=== PATIENT | male | born 1945 | race Caucasian/White ===

== ENCOUNTER 2021-02-04 02:13 | Inpatient (IN) | payer MEDICARE ==
--- NOTE | 2021-02-04 02:26 | ED ---
Chest Pain HPI - General Chief Complaint: Chest Pain Stated Complaint: Chest pain, back pain Time Seen by Provider: 02/04/21 02:18 Source: patient, family, RN notes reviewed, old records reviewed Mode of arrival: wheelchair Limitations: no limitations - History of Present Illness MD Complaint: chest pain -: hour(s) Onset: during rest Pain Location: substernal Pain Radiation: back Severity: moderate Severity scale (1-10): 4 Quality: tightness, heaviness Consistency: constant Improves With: nothing Worsens With: nothing Anginal Symptoms: diaphoresis Other Symptoms: palpitations Treatments Prior to Arrival: none - Related Data Home Medications Medication Instructions Recorded Confirmed Albuterol Inhaler [Ventolin Hfa 2 puff INHALATION RT-QID PRN 02/04/21 02/04/21 Inhaler] Ammonium Lactate Lotion 1 applic TOPICAL DAILY PRN 02/04/21 02/04/21 [Lac-Hydrin 12% Lotion] Aspirin EC [Ecotrin] 325 mg PO DAILY 02/04/21 02/04/21 Atorvastatin [Lipitor] 40 mg PO HS 02/04/21 02/04/21 Cetirizine HCl [Zyrtec] 10 mg PO DAILY PRN 02/04/21 02/04/21 Doxazosin [Cardura] 4 mg PO BID 02/04/21 02/04/21 Econazole 1% Cream [Spectazole] 1 applic TOPICAL DAILY PRN 02/04/21 02/04/21 Finasteride [Proscar] 5 mg PO DAILY 02/04/21 02/04/21 INSULIN LISPRO (For Pump) [humaLOG 0.01 units SQ-PUMP CONTINUOUS 02/04/21 02/04/21 (For Pump)] Isosorbide Mononitrate ER [Imdur] 30 mg PO DAILY 02/04/21 02/04/21 Levothyroxine Sodium [Synthroid] 124 mcg PO DAILY 02/04/21 02/04/21 Losartan Potassium 100 mg PO HS 02/04/21 02/04/21 Metoprolol Tartrate [Lopressor] 50 mg PO BID 02/04/21 02/04/21 Pentoxifylline 400 mg PO BID 02/04/21 02/04/21 Verapamil HCl [Verapamil ER] 120 mg PO HS 02/04/21 02/04/21 Verapamil HCl [Verapamil ER] 240 mg PO DAILY 02/04/21 02/04/21 Zolpidem [Ambien] 5 mg PO HS PRN 02/04/21 02/04/21 Allergies Allergy/AdvReac Type Severity Reaction Status Date / Time amlodipine [From Lotrel] AdvReac Cough Verified 02/04/21 07:55 benazepril [From Lotrel] AdvReac Cough Verified 02/04/21 07:55 Review of Systems ROS Statement: Those systems with pertinent positive or pertinent negative responses have been documented in the HPI. ROS Other: All systems not noted in ROS Statement are negative. EKG Findings - EKG Comments: EKG Findings:: EKG shows sinus rhythm 64 PA 164 QRS 84 QTc 433 Past Medical History Past Medical History: Diabetes Mellitus, Hypertension History of Any Multi-Drug Resistant Organisms: None Reported Additional Past Surgical History / Comment(s): carpal tunnel surgery Past Psychological History: No Psychological Hx Reported Smoking Status: Never smoker Past Alcohol Use History: None Reported Past Drug Use History: None Reported - Past Family History Father Family Medical History: Myocardial Infarction ([place]) General Exam Limitations: no limitations General appearance: alert, in no apparent distress Head exam: Present: atraumatic, normocephalic, normal inspection Eye exam: Present: normal appearance, PERRL, EOMI. Absent: scleral icterus, conjunctival injection, periorbital swelling ENT exam: Present: normal exam, mucous membranes moist Neck exam: Present: normal inspection. Absent: tenderness, meningismus, lymphadenopathy Respiratory exam: Present: normal lung sounds bilaterally. Absent: respiratory distress, wheezes, rales, rhonchi, stridor Cardiovascular Exam: Present: regular rate, normal rhythm, normal heart sounds. Absent: systolic murmur, diastolic murmur, rubs, gallop, clicks GI/Abdominal exam: Present: soft, normal bowel sounds. Absent: distended, tende rness, guarding, rebound, rigid Extremities exam: Present: normal inspection, full ROM, normal capillary refill. Absent: tenderness, pedal edema, joint swelling, calf tenderness Back exam: Present: normal inspection Neurological exam: Present: alert, oriented X3, CN II-XII intact Psychiatric exam: Present: normal affect, normal mood Skin exam: Present: warm, dry, intact, normal color. Absent: rash Course Vital Signs 02/04/21 02/04/21 02:20 03:30 Temperature 98.1 F Pulse Rate 64 57 L Respiratory 18 18 Rate Blood Pressure 156/79 139/72 O2 Sat by Pulse 97 96 Oximetry - Reevaluation(s) Reevaluation #1: 02/04/21 Medical record is reviewed Patient continues to have chest pain here in the ER Patient is in no acute distress Patient informed results questions answered Disposition Clinical Impression: Chest pain Disposition: ADMITTED IP TO THIS HOSP Condition: Undetermined Is patient prescribed a controlled substance at d/c from ED?: No
[2021-02-04 03:07] LABS: Basophils # (A) 0.1 k/uL (0-0.2); Basophils % (A) 1 %; Eosinophils # (A) 0.4 k/uL (0-0.7); Eosinophils % (A) 6 %; HCT 34.9 % (39.0-53.0); HGB 11.9 gm/dL (13.0-17.5); Lymphocytes # (A) 0.7 k/uL (1.0-4.8); Lymphocytes % (A) 12 %; MCH 31.9 pg (25.0-35.0); MCHC 34.1 g/dL (31.0-37.0); MCV 93.3 fL (80.0-100.0); Mean Platelet Volume 7.9; Monocytes # (A) 0.5 k/uL (0-1.0); Monocytes % (A) 8 %; Neutrophils # (A) 4.5 k/uL (1.3-7.7); Neutrophils % (A) 71 %; Platelet Count 176 k/uL (150-450); RBC 3.74 m/uL (4.30-5.90); RDW 12.8 % (11.5-15.5); WBC 6.3 k/uL (3.8-10.6)
[2021-02-04 03:13] LABS: ALT 28 U/L (4-49); AST 30 U/L (17-59); African American GFR (CKD) 35 (>60 ml/min/1.73 sqM); Albumin 3.6 g/dL (3.5-5.0); Alkaline Phosphatase 93 U/L (38-126); Anion Gap 8 mmol/L; Blood Urea Nitrogen 48 mg/dL (9-20); Calcium 8.8 mg/dL (8.4-10.2); Carbon Dioxide 22 mmol/L (22-30); Chloride 104 mmol/L (98-107); Glucose 289 mg/dL (74-99); Lipase 116 U/L (23-300); Magnesium 1.9 mg/dL (1.6-2.3); Non-African American GFR(CKD) 30 (>60 ml/min/1.73 sqM); Potassium 4.8 mmol/L (3.5-5.1); Sodium 134 mmol/L (137-145); Total Bilirubin <0.1 mg/dL (0.2-1.3)
[2021-02-04 03:19] LABS: Partial Thromboplastin Time 23.6 sec (22.0-30.0); Prothrombin Time 10.5 sec (9.0-12.0)
[2021-02-04] MEDS ORDERED: ASPIRIN 81 MG PO STA (04:15)
[2021-02-04] MEDS ORDERED: MORPHINE SULFATE 4 MG/ML SYRINGE IV PRN (04:15)
[2021-02-04] MEDS ORDERED: NITROGLYCERIN SL TABS 0.4 MG TAB SUBLINGUAL PRN ×2 (04:15→14:21)
--- NOTE | 2021-02-04 04:29 | XR ---
EXAMINATION TYPE: XR chest 2V DATE OF EXAM: 02/04/2021 COMPARISON: 07/31/2011 HISTORY: Chest pain TECHNIQUE: 2 views FINDINGS: Heart and mediastinum are normal. Lungs are clear of infiltrate. There is mild atheromatous change in the thoracic aorta. There is no heart failure. There are no hilar masses. There are chest leads. Bony thorax appears intact. IMPRESSION: No active cardiopulmonary disease. There is improved inspiration compared to old exam.
[2021-02-04] MEDS: SODIUM CHLORIDE 0.9% 1,000 ML IV SCH (04:48)
--- NOTE | 2021-02-04 04:52 | P.HPIM ---
History of Present Illness H&P Date: 02/04/21 Patient is a 76-year-old male with a PMH of coronary artery disease, hypertension, and type II DM who presented to the emergency room with complaints of chest pain. The patient reports that he was in his usual state of health until about 4 PM last night when he developed what he initially thought was heartburn. He took some Pepto-Bismol which alleviated his symptoms but subsequently recurred at around 11 PM. He reports that his discomfort is substernal, sore in nature, 5 out of 10 on maximal intensity, and lasted an hour, resolving spontaneously. He denied any alleviating or exacerbating f eatures. Noted that the pain was nonradiating, and denied associated shortness breath, nausea, vomiting, diaphoresis, dizziness. Denied leg swelling or pain. Denied recent travel or prolonged immobilization. Reports that the pain is different from his prior MD. Further denied cough, fever, chills, abdominal pain, diarrhea. In the emergency room and EKG revealed sinus rhythm at 64 bpm with no acute ST/T-wave changes noted as reviewed by me. Chest x-ray was unremarkable. Laboratory evaluation was remarkable for hemoglobin of 11.9, sodium 134, BUN 48, creatinine 2.08, glucose 289, troponin less than 0.012, and proBNP 195. Review of systems: Pertinent positives and negatives as discussed in HPI, a complete review of systems was performed and all other systems are negative. Physical examination: General: non toxic, no distress, appears at stated age, obese Derm: no unusual rashes/lesions no unusual ecchymoses, warm, dry Head: atraumatic, normocephalic, symmetric Eyes: EOMI, no lid lag, anicteric sclera, pupils equal round reactive to light ENT: Nose and ears atraumatic, no thrush, no pharyngeal erythema Neck: No thyromegaly, no cervical lymphadenopathy, trachea midline, supple Mouth: no lip lesion, mucus membranes moist Cardiovascular: S1S2 reg, no murmur, positive posterior tibial pulse bilateral, no edema, capillary refill less than 2 seconds Lungs: CTA bilateral, no rhonchi, no rales , no accessory muscle use Abdominal: soft, nontender to palpation, no guarding, no appreciable organomegaly, normal bowel sounds Ext: no gross muscle atrophy, muscle strength 5 out of 5 in all 4 extremities grossly, no contractures, Neuro: CN II-XI grossly intact, light touch intact all 4 extremities, finger to nose within normal limits, Psych: Alert, oriented, appropriate affect Assessment/plan Atypical Chest pain, rule out ACS -Cardiac monitoring -Cardiology consult -Trend troponin -Continue aspirin Kidney disease, acute versus chronic -Monitor for now -No baseline available for comparison Type II DM -Lispro insulin sliding scale blood glucose monitoring -Check A1c DVT prophylaxis -Heparin subq The patient is admitted with an anticipated less than 2 midnight stay for evaluation of chest pain. CODE STATUS: Full Code Discussed with: Patient Anticipated discharge date: in am Anticipated discharge place: Home Past Medical History Past Medical History: Diabetes Mellitus, Hypertension History of Any Multi-Drug Resistant Organisms: None Reported Additional Past Surgical History / Comment(s): carpal tunnel surgery Past Psychological History: No Psychological Hx Reported Smoking Status: Never smoker Past Alcohol Use History: None Reported Past Drug Use History: None Reported - Past Family History Father Family Medical History: Myocardial Infarction ([place]) Medications and Allergies Allergies Allergy/AdvReac Type Severity Reaction Status Date / Time amlodipine [From Lotrel] AdvReac Cough Verified 02/04/21 02:26 benazepril [From Lotrel] AdvReac Cough Verified 02/04/21 02:26 Physical Exam Vitals: Vital Signs Temp Pulse Resp BP Pulse Ox 02/04/21 03:30 57 L 18 139/72 96 02/04/21 02:20 98.1 F 64 18 156/79 97 Intake and Output 02/03/21 02/03/21 02/04/21 14:59 22:59 06:59 Other: Weight 100.698 kg Results CBC & Chem 7: 02/04/21 02:49 02/04/21 02:49 Labs: Abnormal Lab Results - Last 24 Hours (Table) 02/04/21 02/04/21 Range/Units 02:49 02:49 RBC 3.74 L (4.30-5.90) m/uL Hgb 11.9 L (13.0-17.5) gm/dL Hct 34.9 L (39.0-53.0) % Lymphocytes # 0.7 L (1.0-4.8) k/uL Sodium 134 L (137-145) mmol/L BUN 48 H (9-20) mg/dL Creatinine 2.08 H (0.66-1.25) mg/dL Glucose 289 H (74-99) mg/dL Total Bilirubin <0.1 L (0.2-1.3) mg/dL Total Protein 6.0 L (6.3-8.2) g/dL
[2021-02-04 07:36] LABS: Glucose,Whole Blood 187 mg/dL (75-99)
[2021-02-04] MEDS ORDERED: ZOLPIDEM 5 MG TAB PO PRN (08:27)
[2021-02-04] MEDS ORDERED: ALBUTEROL NEBULIZED 2.5 MG/3 ML INHALATION PRN (08:27)
[2021-02-04] MEDS ORDERED: LORATADINE 10 MG TAB PO PRN (08:27)
[2021-02-04] MEDS ORDERED: CAFFEINE CITRATE 60 MG/3 ML VIAL IV PRN (08:29)
[2021-02-04] MEDS ORDERED: REGADENOSON 0.4 MG/5 ML SYRINGE IV PRN (08:29)
[2021-02-04] MEDS ORDERED: AMINOPHYLLINE 500 MG/20 ML VIAL IV PRN (08:29)
[2021-02-04] MEDS ORDERED: INSULIN LISPRO (For Pump) 100 UNIT/ML VIAL SQ-PUMP SCH (08:30)
[2021-02-04] MEDS: INSULIN ASPART (NovoLOG) 100 UNIT/ML VIAL SQ SCH ×2 (08:30→12:00)
[2021-02-04] MEDS: ISOSORBIDE MONONITRATE ER 30 MG TAB.ER.24H PO SCH (08:47)
[2021-02-04] MEDS: METOPROLOL TARTRATE 50 MG TAB PO SCH ×2 (08:47→20:49)
[2021-02-04] MEDS: ASPIRIN 81 MG PO SCH (08:47)
[2021-02-04] MEDS: HEPARIN SODIUM,PORCINE/PF 5,000 UNIT/0.5 ML SYRINGE SQ SCH ×2 (08:47→16:12)
[2021-02-04] MEDS: LEVOTHYROXINE 112 MCG TAB PO SCH (08:47)
[2021-02-04] MEDS: VERAPAMIL SR 120 MG TABLET.ER PO SCH ×2 (08:48→20:49)
[2021-02-04] MEDS: DOXAZOSIN 4 MG TAB PO SCH ×2 (08:48→20:49)
[2021-02-04] MEDS: FINASTERIDE 5 MG TAB PO SCH (08:48)
[2021-02-04] MEDS: PENTOXIFYLLINE 400 MG TABLET.ER PO SCH ×2 (08:48→20:51)
--- NOTE | 2021-02-04 09:48 | P.CRDCN ---
History of Present Illness Consult date: 02/04/21 History of present illness: HISTORY OF PRESENT ILLNESS: This is a 76-year-old male with a past medical history significant for hypertension, hyperlipidemia, diabetes mellitus. Patient states he had a heart attack about 10 years ago. He reports having a cardiac cath at that time and did not require stenting. Patient follows in the office with Dr. Bryan. We have been asked to see the patient in consultation for chest pain. Patient examined at the bedside. Patient states yesterday he ate a meal around 3 PM. He states at 4 PM he started having heartburn symptoms. He denies any radiation of the pain. He denied any nausea or vomiting. Denied dizziness or lightheadedness. Denied shortness of breath. He states he took some Pepto wh ich relieved his symptoms. He states later that night he was lying in bed when he started to get some pain in his back and his right shoulder. He states he rolled over to his other side and then started having some pain in his left shoulder. He states that he had pulled a muscle a few days ago and his neck so he did not think much of this. However he got up and states he started working on his laptop when he then developed some chest pain going across to his chest. He states he took his blood pressure and it was in the 160s. He states he took his blood pressure again and then it went up to the 190s so he became concerned and came to the hospital. Patient currently denies chest pain or pressure. Patient did have a stress test performed in January 2020 which was mildly abnormal. However patient states he followed up with Dr. Bryan and no heart cath was recommended at that time. EKG reveals sinus mechanism with no signs of acute ischemia Chest xray no active cardiopulmonary disease Laboratory data: WBC 6.3. Hemoglobin 11.9. Platelet count 176. Sodium 134. Potassium 4.8. BUN 48. Creatinine 2.08. Troponin negative 3. ProBNP 195. Current home cardiac medications include verapamil 120 mg daily, aspirin 325 mg daily, metoprolol tartrate 50 mg daily, losartan 100mg daily, imdur 30mg daily, cardura 4mg BID, lipitor 40mg daily Most recent echocardiogram obtained in December 2019 revealed ejection fraction 55%. Mild mitral regurgitation. Mild tricuspid regurgitation. Patient underwent nuclear stress test in January 2020 revealing positive stress test based on EKG changes. Abnormal perfusion study with reversible ischemia involving the small segment in the anterior apical area. In addition there appeared to be a fixed defect involving the inferior basal segment. This could be secondary to soft tissue attenuation, though previous myocardial infection cannot be excluded. Gated images showed fair systolic fraction was suggestion of mild hypokinesia of the inferior apical area REVIEW OF SYSTEMS: At the time of my exam: CONSTITUTIONAL: Denies fever or chills. HEENT: Denies blurred vision, vision changes, or eye pain. Denies hemoptysis CARDIOVASCULAR: Denies chest pain. Denies orthopnea. Denies PND. Denies palpitations RESPIRATORY: Denies shortness of breath. GASTROINTESTINAL: Denies abdominal pain. Denies nausea or vomiting. HEMATOLOGIC: Denies bleeding disorders. GENITOURINARY: Denies any blood in urine. SKIN: Denies pruitis. Denies rash. PHYSICAL EXAM: VITAL SIGNS: Reviewed. GENERAL: Well-developed in no acute distress. HEENT: Head is normocephalic. Pupils are equal, round. Sclerae anicteric. Mucous membranes of the mouth are moist. Neck supple. No JVD or thyromegaly LUNGS: Respirations even and unlabored. Lungs essentially clear to auscultation bilaterally. HEART: Regular rate and rhythm. S1 and S2 heard. ABDOMEN: Soft. Nondistended. Nontender. EXTREMITIES: Normal range of motion. No clubbing or cyanosis. Peripheral pulses intact. No lower extremity edema NEUROLOGIC: Awake and alert. Oriented x 3. ASSESSMENT: Chest pain Hypertension Hyperlipidemia Diabetes History of NSTEMI, 2010, not requiring PCI Obesity, BMI 31.0 PLAN: An acute coronary event has been ruled out Resume home cardiac medications Obtain 2D echo to assess cardiac structure and function Patient to undergo Le scan stress test today Further recommendations pending patient course Nurse practitioner note has been reviewed by physician. Signing provider agrees with the documented findings, assessment, and plan of care. Past Medical History Past Medical History: Diabetes Mellitus, Hypertension History of Any Multi-Drug Resistant Organisms: None Reported Past Surgical History: Tonsillectomy Additional Past Surgical History / Comment(s): carpal tunnel surgery Past Anesthesia/Blood Transfusion Reactions: No Reported Reaction Past Psychological History: No Psychological Hx Reported Smoking Status: Never smoker Past Alcohol Use History: None Reported Past Drug Use History: None Reported - Past Family History Father Family Medical History: Myocardial Infarction ([place]) Medications and Allergies Home Medications Medication Instructions Recorded Confirmed Type Albuterol Inhaler [Ventolin Hfa 2 puff INHALATION RT-QID PRN 02/04/21 02/04/21 History Inhaler] Ammonium Lactate Lotion 1 applic TOPICAL DAILY PRN 02/04/21 02/04/21 History [Lac-Hydrin 12% Lotion] Aspirin EC [Ecotrin] 325 mg PO DAILY 02/04/21 02/04/21 History Atorvastatin [Lipitor] 40 mg PO HS 02/04/21 02/04/21 History Cetirizine HCl [Zyrtec] 10 mg PO DAILY PRN 02/04/21 02/04/21 History Doxazosin [Cardura] 4 mg PO BID 02/04/21 02/04/21 History Econazole 1% Cream [Spectazole] 1 applic TOPICAL DAILY PRN 02/04/21 02/04/21 History Finasteride [Proscar] 5 mg PO DAILY 02/04/21 02/04/21 History INSULIN LISPRO (For Pump) [humaLOG 0.01 units SQ-PUMP CONTINUOUS 02/04/21 02/04/21 History (For Pump)] Isosorbide Mononitrate ER [Imdur] 30 mg PO DAILY 02/04/21 02/04/21 History Levothyroxine Sodium [Synthroid] 124 mcg PO DAILY 02/04/21 02/04/21 History Losartan Potassium 100 mg PO HS 02/04/21 02/04/21 History Metoprolol Tartrate [Lopressor] 50 mg PO BID 02/04/21 02/04/21 History Pentoxifylline 400 mg PO BID 02/04/21 02/04/21 History Verapamil HCl [Verapamil ER] 120 mg PO HS 02/04/21 02/04/21 History Verapamil HCl [Verapamil ER] 240 mg PO DAILY 02/04/21 02/04/21 History Zolpidem [Ambien] 5 mg PO HS PRN 02/04/21 02/04/21 History Allergies Allergy/AdvReac Type Severity Reaction Status Date / Time amlodipine [From Lotrel] AdvReac Cough Verified 02/04/21 07:55 benazepril [From Lotrel] AdvReac Cough Verified 02/04/21 07:55 Physical Exam Vitals: Vital Signs Temp Pulse Pulse Resp BP BP Pulse Ox 02/04/21 07:00 97.6 F 71 16 185/84 97 02/04/21 05:23 97.8 F 59 L 16 172/80 95 02/04/21 04:50 97.8 F 60 18 161/88 96 02/04/21 03:30 57 L 18 139/72 96 02/04/21 02:20 98.1 F 64 18 156/79 97 Intake and Output 02/03/21 02/04/21 02/04/21 22:59 06:59 14:59 Other: # Voids 1 Weight 100.698 kg Results 02/04/21 02:49 02/04/21 02:49 Cardiac Enzymes 02/04/21 02/04/21 02/04/21 Range/Units 02:49 02:49 05:41 AST 30 (17-59) U/L Troponin I <0.012 <0.012 (0.000-0.034) ng/mL Coagulation 02/04/21 Range/Units 02:49 PT 10.5 (9.0-12.0) sec APTT 23.6 (22.0-30.0) sec CBC 02/04/21 Range/Units 02:49 WBC 6.3 (3.8-10.6) k/uL RBC 3.74 L (4.30-5.90) m/uL Hgb 11.9 L (13.0-17.5) gm/dL Hct 34.9 L (39.0-53.0) % Plt Count 176 (150-450) k/uL Comprehensive Metabolic Panel 02/04/21 Range/Units 02:49 Sodium 134 L (137-145) mmol/L Potassium 4.8 (3.5-5.1) mmol/L Chloride 104 (98-107) mmol/L Carbon Dioxide 22 (22-30) mmol/L BUN 48 H (9-20) mg/dL Creatinine 2.08 H (0.66-1.25) mg/dL Glucose 289 H (74-99) mg/dL Calcium 8.8 (8.4-10.2) mg/dL AST 30 (17-59) U/L ALT 28 (4-49) U/L Alkaline Phosphatase 93 (38-126) U/L Total Protein 6.0 L (6.3-8.2) g/dL Albumin 3.6 (3.5-5.0) g/dL Current Medications Generic Name Dose Route Start Last Admin Trade Name Freq PRN Reason Stop Dose Admin Aspirin 325 mg 02/05/21 09:00 Aspirin 325 Mg Tab PO DAILY [facility] Heparin Sodium (Porcine) 5,000 unit 02/04/21 08:00 Heparin Sodium,Porcine/Pf 5,000 Unit/0.5 Ml Syringe SQ Q8HR [facility] Sodium Chloride 1,000 mls @ 20 mls/hr 02/04/21 04:15 02/04/21 04:48 Saline 0.9% IV 20 mls/hr .Q24H [facility] Administration Insulin Aspart 0 unit 02/04/21 07:30 Insulin Aspart (Novolog) 100 Unit/Ml Vial SQ ACHS [facility] Protocol Morphine Sulfate 4 mg 02/04/21 04:15 Morphine Sulfate 4 Mg/Ml Syringe IV Q4HR PRN Chest Pain Nitroglycerin 0.4 mg 02/04/21 04:15 Nitroglycerin Sl Tabs 0.4 Mg Tab SUBLINGUAL Q5M PRN Chest Pain Intake and Output 02/03/21 02/04/21 02/04/21 22:59 06:59 14:59 Other: # Voids 1 Weight 100.698 kg 02/04/21 02:49 02/04/21 02:49
[2021-02-04 09:52] LABS: African American GFR (CKD) 36.5 (60.0-200.0); Anion Gap 7.6 mmol/L (4.00-12.00); BUN/Creat Ratio 23.5 Ratio (12.00-20.00); Calcium 8.8 mg/dL (8.7-10.3); Carbon Dioxide 25.4 mmol/L (21.6-31.8); Non-African American GFR(CKD) 31.5 (60.0-200.0); Potassium 4.8 mmol/L (3.5-5.5)
[2021-02-04 11:58] LABS: Glucose,Whole Blood 200 mg/dL (75-99)
--- NOTE | 2021-02-04 13:27 | NM ---
EXAMINATION TYPE: NM stress lexiscan cardiolite DATE OF EXAM: 02/04/2021 COMPARISON: NONE HISTORY: Chest pain TECHNIQUE: After the intravenous administration of 10.2 mCi Tc 99m Sestamibi - Cardiolite resting SP ECT images acquired 75 minutes post injection. At peak stress 25 mCi Tc 99m Sestamibi - Stress images obtained 35 minutes post injection The patient was stressed with 0.4mg Lexiscan. FINDINGS: There is diminished radiotracer accumulation along the inferior wall extending from the cardiac base to the cardiac apex on the stress images. This has improved radiotracer distribution on the resting i mages. Stress-induced ischemic change should be considered. Polar maps appear to underestimate the de fect. Ejection fraction of 51% is normal. Normal greater than 50%. There is dyskinesia of the cardiac apex along the inferior wall. IMPRESSION: 1. Stress-induced ischemic change along the inferior wall. Correlate with EKG changes. 2. Mild dyskinesia distal inferior wall. 3. Normal ejection fraction of 51%
[2021-02-04] MEDS ORDERED: INSULIN PUMP BASAL RATES 1 EACH MISC MISCELLANE PRN (13:37)
[2021-02-04] MEDS ORDERED: INSPUCOR MISCELLANE PRN (13:37)
[2021-02-04] MEDS ORDERED: INSULIN ASPART (NovoLOG) 100 UNIT/ML VIAL SQ PRN (13:37)
[2021-02-04] MEDS ORDERED: ALPRAZolam 0.25 MG TAB PO PRN (14:21)
[2021-02-04] MEDS ORDERED: ALPRAZolam 0.5 MG TAB PO PRN (14:21)
--- NOTE | 2021-02-04 15:02 | EST ---
EXERCISE STRESS DATE OF SERVICE: 02/04/21 AGE: 76 SEX: M HT: 5'11" WT: 222 lbs. PROTOCOL: Lexiscan STAGE: NA DURATION OF EXERCISE: NA HEART RATE REST: 58 BLOOD PRESSURE REST: 139/70 MAXIMUM HEART RATE ACHIEVED: 79 MAXIMUM BLOOD PRESSURE: 139/70 85% MPHR: 122 100% MPHR: 144 METS: NA RESULTS: Baseline rhythm is sinus mechanism, rate 58, normal axis and intervals. Poor R wave progression V1 to V3, consistent with anteroseptal myocardial infarction. Baseline blood pressure 139/78 mmHg. Patient received injection of Lexiscan. Electrocardiograph monitoring revealed no evidence of diagnostic ischemic ST deviation. Cardiolite was injected per protocol. CONCLUSION: 1. Nondiagnostic electrocardiograph stress testing. 2. Nuclear images will be reported separately. MMODL / IJN: [id number] /
[2021-02-04 17:19] LABS: Glucose,Whole Blood 181 mg/dL (75-99)
--- NOTE | 2021-02-04 17:53 | P.PN ---
Progress Note - Text Progress Note Date: 02/04/21 Patient seen and evaluated by me independently. I agree with the documented assessment and plan by my colleague earlier this morning. Patient underwent Lexiscan stress test which was positive for ischemia. Patient is boarded for left heart cath tomorrow.
[2021-02-04] MEDS: INSULIN PUMP MEAL BOLUS 1 UNIT MISC MISCELLANE SCH ×2 (18:03→20:49)
[2021-02-04 20:26] LABS: Glucose,Whole Blood 178 mg/dL (75-99)
[2021-02-04] MEDS: LOSARTAN 50 MG TAB PO SCH (20:49)
[2021-02-04] MEDS: ATORVASTATIN 40 MG TAB PO SCH (20:49)
[2021-02-04] MEDS ORDERED: SODIUM CHLORIDE 0.9% 1,000 ML in EMPTY BAG 1 BAG IV ONE (23:00)
[2021-02-05] MEDS: HEPARIN SODIUM,PORCINE/PF 5,000 UNIT/0.5 ML SYRINGE SQ SCH ×4 (00:04→23:37)
[2021-02-05] MEDS: SODIUM CHLORIDE 0.9% 1,000 ML IV SCH ×3 (04:11→23:37)
[2021-02-05] MEDS: LEVOTHYROXINE 112 MCG TAB PO SCH (05:44)
[2021-02-05] MEDS ORDERED: ATORVASTATIN 80 MG TAB PO ONE (07:00)
[2021-02-05] MEDS ORDERED: HEPARIN SODIUM,PORCINE 10,000 UNIT in SODIUM CHLORIDE 0.9% 1,000 ML IRRIGATION PRN (07:00)
[2021-02-05] MEDS ORDERED: HEPARIN SODIUM,PORCINE 2,500 UNIT in SODIUM CHLORIDE 0.9% 250 ML IRRIGATION PRN (07:00)
[2021-02-05] MEDS ORDERED: ASPIRIN 325 MG TAB PO ONE (07:00)
[2021-02-05 07:18] LABS: Glucose,Whole Blood 177 mg/dL (75-99)
[2021-02-05] MEDS: ASPIRIN 81 MG PO SCH (07:54)
[2021-02-05] MEDS: METOPROLOL TARTRATE 50 MG TAB PO SCH ×2 (07:58→20:32)
[2021-02-05] MEDS: PENTOXIFYLLINE 400 MG TABLET.ER PO SCH ×2 (07:59→20:31)
[2021-02-05] MEDS: ISOSORBIDE MONONITRATE ER 30 MG TAB.ER.24H PO SCH (07:59)
[2021-02-05] MEDS: DOXAZOSIN 4 MG TAB PO SCH ×2 (08:00→20:32)
[2021-02-05] MEDS: VERAPAMIL SR 120 MG TABLET.ER PO SCH ×2 (08:00→20:32)
[2021-02-05] MEDS: FINASTERIDE 5 MG TAB PO SCH (08:00)
[2021-02-05] MEDS ORDERED: LIDOCAINE 1% INJ 10MG/ML (20 ML MDV) ONE (08:28)
[2021-02-05] MEDS ORDERED: VERAPAMIL 2.5 MG/ML 2 ML AMP ONE (08:28)
[2021-02-05] MEDS ORDERED: IV FLUID CONTINUATION 200 ML IV ONE (08:43)
[2021-02-05] MEDS ORDERED: HEPARIN SODIUM 1,000 UN/ML (10ML VL) ONE (08:44)
[2021-02-05] MEDS ORDERED: fentaNYL (PF) 50 MCG/ML 2 ML AMP ONE (08:45)
[2021-02-05] MEDS ORDERED: ASPIRIN 325 MG TAB PO SCH (09:00)
[2021-02-05] MEDS ORDERED: MIDAZOLAM 2 MG/2 ML VIAL IV ONE (09:05)
[2021-02-05] MEDS ORDERED: fentaNYL (PF) 50 MCG/ML 2 ML AMP IV ONE ×2 (09:05)
[2021-02-05] MEDS ORDERED: LIDOCAINE 1% INJ 10MG/ML (20 ML MDV) SQ ONE (09:09)
[2021-02-05] MEDS ORDERED: VERAPAMIL SYRINGE (5 MG/10 ML) INTRAARTER ONE (09:12)
[2021-02-05] MEDS ORDERED: IOPAMIDOL-370 100ML BTL INJ ONE (09:35)
[2021-02-05] MEDS ORDERED: RX INFO: IV CONTRAST WAS GIVEN 1 EACH MISC MISCELLANE PRN (09:43)
--- NOTE | 2021-02-05 09:56 | P.CARDCATH ---
Date of Procedure: 02/05/21 Preoperative Diagnosis: Unstable angina Postoperative Diagnosis: Triple-vessel disease Implants: Left heart catheterization without left ventriculography Description of Procedure: HISTORY: This is a 76-year-old gentleman with history of hypertension, diabetes and hypercholesterolemia who was admitted to the hospital with the burning chest pain and shoulder pain. Patient underwent a nuclear stress test which was reported as showing myxoid ischemia involving the inferior wall. Patient also had abnormal stress test in 2019. He was advised to have a cardiac catheterization for definitive diagnosis. CONSENT:I have discussed the risks, benefits and alternative therapies for the above-mentioned procedure and for both sedation/analgesia as well as necessary blood product administration, if indicated, as they pertain to this patient. The patient has indicated understanding and acceptance of the risks and procedures discussed. PROCEDURE: Patient was brought to the lab in a fasting state. Patient was given some IV sedation. The right wrist is infiltrated with lidocaine and right radial artery was entered using Seldinger technique. A 6-Lao catheter was left in place and selective coronary arteriography was performed. Patient tolerated the procedure well. TR band was applied for hemostasis. No immediate complications were noted and patient was transferred to [facility] in a stable condition Conscious Sedation: Versed 1mg Fentanyl 25 g Duration 21minutes HEMODYNAMICS: The aortic pressure is about and 110/70. Left ventricle end- diastolic pressure was 2-3. There was no gradient across the aortic valve SELECTIVE CORONARY ARTERIOGRAPHY: LEFT MAIN: Normal length and free of any Sigmund occlusive disease. The coronary system is heavily calcified, including left main THE LEFT ANTERIOR DESCENDING CORONARY ARTERY: Is a heavily calcified vessel with a long 50-60% lesion involving the proximal LAD. There appears to be eccentric 80-90% stenosis at the origin of the first diagonal. There is also on a 70% lesion in the distal LAD THE LEFT CIRCUMFLEX AND IS CORONARY ARTERY: Moderate caliber vessel. Patient is a moderate caliber intermediate branch which has about 60-70% lesion THE RIGHT CORONARY ARTERY: To dominant vessel giving rise to PDA and PLV. There is about 60-70% lesion in the distal RCA. The vessel is calcified. There is a 95% stenosis involving the origin of the PLV branch which has 2 divisions LEFT VENTRICULOGRAPHY: Not performed FINAL IMPRESSION: . 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 Films were reviewed with the Dr. Jane. A surgical opinion for possible CABG is suggested. We will continue current medical therapy PROGNOSIS: . Guarded
[2021-02-05] MEDS: INSULIN PUMP MEAL BOLUS 1 UNIT MISC MISCELLANE SCH ×4 (10:19→20:33)
[2021-02-05 11:07] LABS: African American GFR (CKD) 36.5 (60.0-200.0); Anion Gap 7.7 mmol/L (4.00-12.00); Calcium 8.9 mg/dL (8.7-10.3); Carbon Dioxide 25.3 mmol/L (21.6-31.8); Chol/HDL Ratio 5.13; LDL Cholesterol,Calculated 73.8 mg/dL (0.0-131.0); Non-African American GFR(CKD) 31.5 (60.0-200.0); Potassium 4.4 mmol/L (3.5-5.5); VLDL Calculation 25.2 mg/dL (5.00-40.00)
[2021-02-05 11:40] LABS: Glucose,Whole Blood 150 mg/dL (75-99)
[2021-02-05 12:09] LABS: HCT 35.4 % (39.0-53.0); MCHC 33.8 g/dL (31.0-37.0); MCV 94.6 fL (80.0-100.0); Mean Platelet Volume 9.4; Platelet Count 193 k/uL (150-450); RBC 3.74 m/uL (4.30-5.90); RDW 12.9 % (11.5-15.5); WBC 5.9 k/uL (3.8-10.6)
[2021-02-05 12:20] LABS: Magnesium 1.9 mg/dL (1.6-2.3)
--- NOTE | 2021-02-05 12:44 | XR ---
EXAMINATION TYPE: XR chest 2V DATE OF EXAM: 02/05/2021 COMPARISON: Chest x-ray from yesterday. HISTORY: Preoperative CABG. TECHNIQUE: Frontal and lateral views of the chest are obtained. FINDINGS: Slightly more prominent central vascular congestion on current study with new left basilar linear atelectatic change. No pleural effusion noted. The cardiac silhouette size is stable and wit hin normal limits. Multilevel spurring in the spine redemonstrated. IMPRESSION: Developing mild central vascular congestion. No new pleural effusion.
--- NOTE | 2021-02-05 12:45 | P.GSCN ---
<Beatrice Trinidad - Last Filed: 02/05/21 12:27> History of Present Illness Consult date: 02/05/21 Reason for Consult: Coronary artery disease Requesting physician: Leona Bryan History of present illness: This is a 76-year-old gentleman who follows on an outpatient basis with Dr. Benavides for primary care as well as Dr. Dr. Bryan for cardiology. He has a previous medical history of coronary artery disease with prior myocardial infarction treated medically, hypertension, hyperlipidemia, insulin-dependent diabetes mellitus with insulin pump, hypothyroid, stage III chronic kidney disease, neuropathy, BPH, remote history of pneumonia, previous tobacco dependence, and family history of heart disease. He presented to the emergency room with complaints of increased blood pressure which he was concerned about. In addition he had recent complaints of heartburn, states he took Pepto-Bismol with relief of his pain. He denies any shortness of breath, nausea, vomiting, diaphoresis, or lightheadedness. Again he was concerned about his blood pressure so he presented to [facility] emergency room for evaluation and treatment. His blood pressure was treated, however there was concern regarding his heartburn-like chest pain as the patient reports having a positive stress test last January for which he was treated medically per the patient's request. Troponins were negative but due to his history and his blood pressure the patient was admitted for continued evaluation and treatment. He did undergo stress testing which was reportedly abnormal and was recommended to undergo heart catheterization which was completed today and which demonstrated proximal LAD stenosis 50-60% with distal LAD to stenosis 70%, first diagonal stenosis 80- 90%, a branch of the circumflex coronary artery 60-70% stenosis, distal right coronary artery 60-70%, and PLV with 95% stenosis. Due to these findings consultation was placed to cardiothoracic surgery for surgical revascularization recommendations. Review of Systems Review of systems was completed and was negative except as noted - Cardiovascular Reports as per HPI, Reports chest pain, Reports high blood pressure - Gastrointestinal Reports as per HPI, Reports heartburn Past Medical History Past Medical History: Coronary Artery Disease (CAD), Diabetes Mellitus, Hyperlipidemia, Hypertension, Myocardial Infarction (DC), Pneumonia, Prostate Disorder, Thyroid Disorder History of Any Multi-Drug Resistant Organisms: None Reported Past Surgical History: Tonsillectomy Additional Past Surgical History / Comment(s): Bilateral carpal tunnel surgery; bilateral cataracts Past Anesthesia/Blood Transfusion Reactions: No Reported Reaction Past Psychological History: No Psychological Hx Reported Smoking Status: Former smoker Past Alcohol Use History: None Reported Past Drug Use History: None Reported Additional History: Quit smoking at the age of 30 - Past Family History Father Family Medical History: Diabetes Mellitus, Myocardial Infarction (DC), Renal Disease Mother Family Medical History: Cancer Additional Family Medical History / Comment(s): Leukemia Medications and Allergies Home Medications Medication Instructions Recorded Confirmed Type Albuterol Inhaler [Ventolin Hfa 2 puff INHALATION RT-QID PRN 02/04/21 02/04/21 History Inhaler] Ammonium Lactate Lotion 1 applic TOPICAL DAILY PRN 02/04/21 02/04/21 History [Lac-Hydrin 12% Lotion] Aspirin EC [Ecotrin] 325 mg PO DAILY 02/04/21 02/04/21 History Atorvastatin [Lipitor] 40 mg PO HS 02/04/21 02/04/21 History Cetirizine HCl [Zyrtec] 10 mg PO DAILY PRN 02/04/21 02/04/21 History Doxazosin [Cardura] 4 mg PO BID 02/04/21 02/04/21 History Econazole 1% Cream [Spectazole] 1 applic TOPICAL DAILY PRN 02/04/21 02/04/21 History Finasteride [Proscar] 5 mg PO DAILY 02/04/21 02/04/21 History INSULIN LISPRO (For Pump) [humaLOG 0.01 units SQ-PUMP CONTINUOUS 02/04/21 02/04/21 History (For Pump)] Isosorbide Mononitrate ER [Imdur] 30 mg PO DAILY 02/04/21 02/04/21 History Levothyroxine Sodium [Synthroid] 124 mcg PO DAILY 02/04/21 02/04/21 History Losartan Potassium 100 mg PO HS 02/04/21 02/04/21 History Metoprolol Tartrate [Lopressor] 50 mg PO BID 02/04/21 02/04/21 History Pentoxifylline 400 mg PO BID 02/04/21 02/04/21 History Verapamil HCl [Verapamil ER] 120 mg PO HS 02/04/21 02/04/21 History Verapamil HCl [Verapamil ER] 240 mg PO DAILY 02/04/21 02/04/21 History Zolpidem [Ambien] 5 mg PO HS PRN 02/04/21 02/04/21 History Allergies Allergy/AdvReac Type Severity Reaction Status Date / Time amlodipine [From Lotrel] AdvReac Cough Verified 02/04/21 07:55 benazepril [From Lotrel] AdvReac Cough Verified 02/04/21 07:55 Surgical - Exam Vital Signs Temp Pulse Resp BP Pulse Ox 98.1 F 64 18 156/79 97 02/04/21 02:20 02/04/21 02:20 02/04/21 02:20 02/04/21 02:20 02/04/21 02:20 CONSTITUTIONAL: Awake and alert, appears comfortable, cooperative, well- developed, well-nourished, no pain, no acute distress EYES: Pupils equal, round, reactive to light, normal ocular movement ENT: Moist mucous membranes without oral lesions present NECK: No masses, no bruits, trachea midline RESPIRATORY: Lungs sounds clear to auscultation bilaterally. Respirations even, nonlabored. Currently on room air with oxygen saturation 95%. Strong cough. No chest wall deformities. No clubbing or cyanosis present CARDIOVASCULAR: S1, S2 present. Regular rate and rhythm. Palpable peripheral pulses bilaterally. Trace bilateral lower extremity edema present. No calf pain or tenderness noted. No significant lower extremity varicosities noted. GASTROINTESTINAL: Abdomen soft, nontender, nondistended without masses or organomegaly noted. There is no rebound or guarding present. Active bowel sounds present 4 quadrants. GENITOURINARY: Deferred INTEGUMENTARY: Skin is warm and dry with evidence of good perfusion. Right radial heart catheterization site well approximated without redness or drainage, TBand in place NEUROLOGIC: Cranial nerves II through XII intact, normal coordination, no obvious motor or sensory deficits, speech is normal MUSKULOSKELETAL: Able to move all extremities, strength equal bilaterally, normal posture PSYCHIATRIC: Alert and oriented to person place and time, appropriate affect, intact judgment and insight Results - Labs 02/05/21 04:39 02/05/21 04:39 Abnormal Lab Results - Last 24 Hours (Table) 02/04/21 02/04/21 02/05/21 Range/Units 17:17 20:25 04:39 RBC (4.30-5.90) m/uL Hgb (13.0-17.5) gm/dL Hct (39.0-53.0) % BUN 40.0 H (9.0-27.0) mg/dL Creatinine 2.0 H (0.6-1.5) mg/dL Est GFR (CKD-EPI)AfAm 36.5 L (60.0-200.0) Est GFR (CKD-EPI)NonAf 31.5 L (60.0-200.0) Glucose 126 H (70-110) mg/dL POC Glucose (mg/dL) 181 H 178 H (75-99) mg/dL HDL Cholesterol 24.0 L (40.0-60.0) mg/dL 02/05/21 02/05/21 02/05/21 Range/Units 04:39 07:08 11:39 RBC 3.74 L (4.30-5.90) m/uL Hgb 12.0 L (13.0-17.5) gm/dL Hct 35.4 L (39.0-53.0) % BUN (9.0-27.0) mg/dL Creatinine (0.6-1.5) mg/dL Est GFR (CKD-EPI)AfAm (60.0-200.0) Est GFR (CKD-EPI)NonAf (60.0-200.0) Glucose (70-110) mg/dL POC Glucose (mg/dL) 177 H 150 H (75-99) mg/dL HDL Cholesterol (40.0-60.0) mg/dL Diabetes panel 02/05/21 Range/Units 04:39 Sodium 141 (135-145) mmol/L Potassium 4.4 (3.5-5.5) mmol/L Chloride 108 (96-109) mmol/L Carbon Dioxide 25.3 (21.6-31.8) mmol/L BUN 40.0 H (9.0-27.0) mg/dL Creatinine 2.0 H (0.6-1.5) mg/dL Glucose 126 H (70-110) mg/dL Calcium 8.9 (8.7-10.3) mg/dL Triglycerides 126.0 (0.0-149.0) mg/dL HDL Cholesterol 24.0 L (40.0-60.0) mg/dL Calcium panel 02/05/21 Range/Units 04:39 Calcium 8.9 (8.7-10.3) mg/dL Pituitary panel 02/05/21 Range/Units 04:39 Sodium 141 (135-145) mmol/L Potassium 4.4 (3.5-5.5) mmol/L Chloride 108 (96-109) mmol/L Carbon Dioxide 25.3 (21.6-31.8) mmol/L BUN 40.0 H (9.0-27.0) mg/dL Creatinine 2.0 H (0.6-1.5) mg/dL Glucose 126 H (70-110) mg/dL Calcium 8.9 (8.7-10.3) mg/dL Adrenal panel 02/05/21 Range/Units 04:39 Sodium 141 (135-145) mmol/L Potassium 4.4 (3.5-5.5) mmol/L Chloride 108 (96-109) mmol/L Carbon Dioxide 25.3 (21.6-31.8) mmol/L BUN 40.0 H (9.0-27.0) mg/dL Creatinine 2.0 H (0.6-1.5) mg/dL Glucose 126 H (70-110) mg/dL Calcium 8.9 (8.7-10.3) mg/dL - Imaging EKG: report reviewed, image reviewed Assessment and Plan Assessment: 1. Coronary artery disease with prior myocardial infarction treated medically 2. Hypertension 3. Hyperlipidemia, treated 4. Insulin-dependent diabetes mellitus with insulin pump 5. Hypothyroid 6. Stage III chronic kidney disease 7. Neuropathy 8. BPH 9. Remote history of pneumonia 10. Previous tobacco dependence 11. Family history of heart disease. Plan: The patient was seen and examined at the bedside on the observation unit. Discharge/diagnostics reviewed. The case was discussed with Dr. Rosario who will be here this afternoon to evaluate the patient. The usual perioperative course of coronary artery bypass surgery was discussed in detail with the patient, risks and benefits were reviewed, all questions were answered. The patient is agreeable to consider surgery. Preoperative testing was completed. Once all testing has been completed we'll calculate STS risk score and discuss with the patient. We will complete a 5 m walk test. Medical management of other comorbidities per primary care service. More recommendations to follow once testing has been completed and Dr. Rosario has met the patient. Thank you Dr. Bryan for this consult. We look forward to working with you in the care of your patient. Time with Patient: Greater than 30 <Tai Rosario - Last Filed: 02/05/21 15:56> Surgical - Exam Vital Signs Temp Pulse Resp BP Pulse Ox 98.1 F 64 18 156/79 97 02/04/21 02:20 02/04/21 02:20 02/04/21 02:20 02/04/21 02:20 02/04/21 02:20 Results - Labs 02/05/21 04:39 02/05/21 04:39 Abnormal Lab Results - Last 24 Hours (Table) 02/04/21 02/04/21 02/05/21 Range/Units 17:17 20:25 04:39 RBC (4.30-5.90) m/uL Hgb (13.0-17.5) gm/dL Hct (39.0-53.0) % BUN 40.0 H (9.0-27.0) mg/dL Creatinine 2.0 H (0.6-1.5) mg/dL Est GFR (CKD-EPI)AfAm 36.5 L (60.0-200.0) Est GFR (CKD-EPI)NonAf 31.5 L (60.0-200.0) Glucose 126 H (70-110) mg/dL POC Glucose (mg/dL) 181 H 178 H (75-99) mg/dL HDL Cholesterol 24.0 L (40.0-60.0) mg/dL TSH (0.465-4.680) mIU/L Urine Protein (Negative) 02/05/21 02/05/21 02/05/21 Range/Units 04:39 04:39 07:08 RBC 3.74 L (4.30-5.90) m/uL Hgb 12.0 L (13.0-17.5) gm/dL Hct 35.4 L (39.0-53.0) % BUN (9.0-27.0) mg/dL Creatinine (0.6-1.5) mg/dL Est GFR (CKD-EPI)AfAm (60.0-200.0) Est GFR (CKD-EPI)NonAf (60.0-200.0) Glucose (70-110) mg/dL POC Glucose (mg/dL) 177 H (75-99) mg/dL HDL Cholesterol (40.0-60.0) mg/dL TSH 0.028 L (0.465-4.680) mIU/L Urine Protein (Negative) 02/05/21 02/05/21 Range/Units 11:39 12:52 RBC (4.30-5.90) m/uL Hgb (13.0-17.5) gm/dL Hct (39.0-53.0) % BUN (9.0-27.0) mg/dL Creatinine (0.6-1.5) mg/dL Est GFR (CKD-EPI)AfAm (60.0-200.0) Est GFR (CKD-EPI)NonAf (60.0-200.0) Glucose (70-110) mg/dL POC Glucose (mg/dL) 150 H (75-99) mg/dL HDL Cholesterol (40.0-60.0) mg/dL TSH (0.465-4.680) mIU/L Urine Protein Trace H (Negative) Diabetes panel 02/05/21 Range/Units 04:39 Sodium 141 (135-145) mmol/L Potassium 4.4 (3.5-5.5) mmol/L Chloride 108 (96-109) mmol/L Carbon Dioxide 25.3 (21.6-31.8) mmol/L BUN 40.0 H (9.0-27.0) mg/dL Creatinine 2.0 H (0.6-1.5) mg/dL Glucose 126 H (70-110) mg/dL Calcium 8.9 (8.7-10.3) mg/dL Triglycerides 126.0 (0.0-149.0) mg/dL HDL Cholesterol 24.0 L (40.0-60.0) mg/dL Thyroid panel 02/05/21 Range/Units 04:39 TSH 0.028 L (0.465-4.680) mIU/L Calcium panel 02/05/21 Range/Units 04:39 Calcium 8.9 (8.7-10.3) mg/dL Pituitary panel 02/05/21 02/05/21 Range/Units 04:39 04:39 Sodium 141 (135-145) mmol/L Potassium 4.4 (3.5-5.5) mmol/L Chloride 108 (96-109) mmol/L Carbon Dioxide 25.3 (21.6-31.8) mmol/L BUN 40.0 H (9.0-27.0) mg/dL Creatinine 2.0 H (0.6-1.5) mg/dL Glucose 126 H (70-110) mg/dL Calcium 8.9 (8.7-10.3) mg/dL TSH 0.028 L (0.465-4.680) mIU/L Adrenal panel 02/05/21 Range/Units 04:39 Sodium 141 (135-145) mmol/L Potassium 4.4 (3.5-5.5) mmol/L Chloride 108 (96-109) mmol/L Carbon Dioxide 25.3 (21.6-31.8) mmol/L BUN 40.0 H (9.0-27.0) mg/dL Creatinine 2.0 H (0.6-1.5) mg/dL Glucose 126 H (70-110) mg/dL Calcium 8.9 (8.7-10.3) mg/dL Assessment and Plan Plan: The patient was seen and examined. 76 year old male with a history of multiple medical problems including DM, CRI with a baseline creatinine of 2.0, HTN, and coronary artery disease s/p DC who presents with heartburn. Cardiac catheterization reveals multi-vessel CAD. A coronary artery bypass was recommended. The risks, benefits, and alternatives to surgery were discussed with the patient. All of his questions were answered. 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 He would like to consider his options including the possibility of PCI. Plan for discharge home. He will call our office if he elects to proceed with surgery.
--- NOTE | 2021-02-05 13:08 | US ---
EXAMINATION TYPE: US carotid duplex BILAT DATE OF EXAM: 02/05/2021 COMPARISON: NONE CLINICAL HISTORY: preop cabg. CAD EXAM MEASUREMENTS: RIGHT: Peak Systolic Velocity (PSV) cm/sec ----- Right CCA: 59.8 ----- Right ICA: 89.7 ----- Right ECA: 178.2 ICA/CCA ratio: 1.5 RIGHT: End Diastole cm/sec ----- Right CCA: 0.0 ----- Right ICA: 0.0 ----- Right ECA: 0.0 LEFT: Peak Systolic Velocity (PSV) cm/sec ----- Left CCA: 70.7 ----- Left ICA: 75.8 ----- Left ECA: 120.5 ICA/CCA ratio: 1.1 LEFT: End Diastole cm/sec ----- Left CCA: 0.0 ----- Left ICA: 12.4 ----- Left ECA: 0.0 VERTEBRALS (direction of flow): Right Vertebral: Antegrade Left Vertebral: Antegrade Rhythm: Normal Moderate peripheral shadowing plaque right carotid bulb on grayscale images. Fairly moderate hyperech oic peripheral plaque LEFT carotid bulb. Velocity measurements and ratios in the visualized portion o f both internal carotid arteries however remains within normal limits. IMPRESSION: Moderate atherosclerotic changes without hemodynamically significant stenosis seen in ei ther internal carotid artery. NASCET criteria was used in interpretation of this exam? Criteria for Assigning % of Stenosis / Diameter reduction (Estimation based on the indirect measurements of the internal carotid artery velocities (ICA PSV). 1. Normal (no stenosis)=ICA PSV < 125 cm/s: ratio < 2.0: ICA EDV<40 cm/s. 2. Less than 50% stenosis=ICA PSV < 125 cm/s: ratio < 2.0: ICA EDV<40 cm/s. 3. 50 to 69% stenosis=ICA PSV of 125 to 230 cm/s: ration 2.0 ? 4.0: ICA EDV 40-100 cm/s. 4. Greater than 70% stenosis to near occlusion= ICA PSV > 230 cm/s: ratio > 4.0: ICA EDV > 100 cm/s. 5. Near occlusion= ICA PSV velocities may be low or undetectable: variable ratio and ICA EDV. 6. Total occlusion=unable to detect flow.
[2021-02-05 13:24] LABS: T4, Free (Free Thyroxine) 2.01 ng/dL (0.78-2.19)
[2021-02-05 13:41] LABS: Appearance,Urine Clear (Clear); Bilirubin,Urine Negative (Negative); Blood,Urine Negative (Negative); Color,Urine Light Yellow; Glucose,Urine (UA) Negative (Negative); Ketones,Urine Negative (Negative); Leukocyte Esterase,Urine Negative (Negative); Nitrite,Urine Negative (Negative); Protein,Urine Trace (Negative); Specific Gravity,Urine 1.025 (1.001-1.035); Urobilinogen,Urine <2.0 mg/dL (<2.0)
--- NOTE | 2021-02-05 14:19 | P.PN ---
Subjective Progress Note Date: 02/05/21 Pt to be evaluated by CT surgery today. Plan for CABG for multi-vessel CAD Objective - Vital Signs Vital signs: Vital Signs Temp 97.4 F L 02/05/21 14:00 Pulse 63 02/05/21 14:00 Resp 16 02/05/21 14:00 BP 136/56 02/05/21 14:00 Pulse Ox 96 02/05/21 14:00 Intake & Output 02/04/21 02/05/21 02/05/21 18:59 06:59 18:59 Intake Total 0 750 Balance 0 750 Weight 100.7 kg Intake: IV 750 Sodium Chloride 0.9% 1, 300 000 ml @ 75 mls/hr IV . [id number] NEIL Rx#:[id number] Sodium Chloride 0.9% 1, 400 000 ml In Empty Bag 1 bag @ 1 ML/KG/HR 100.7 mls/ hr IV .[id number] ONE Rx#: [id number] Oral 0 Other: Voiding Method Toilet Toilet # Voids 2 2 1 - Exam Attempted to see patient twice, but not in room or unavailable. - Labs CBC & Chem 7: 02/05/21 04:39 02/05/21 04:39 Labs: Abnormal Lab Results - Last 24 Hours (Table) 02/04/21 02/04/21 02/05/21 Range/Units 17:17 20:25 04:39 RBC (4.30-5.90) m/uL Hgb (13.0-17.5) gm/dL Hct (39.0-53.0) % BUN 40.0 H (9.0-27.0) mg/dL Creatinine 2.0 H (0.6-1.5) mg/dL Est GFR (CKD-EPI)AfAm 36.5 L (60.0-200.0) Est GFR (CKD-EPI)NonAf 31.5 L (60.0-200.0) Glucose 126 H (70-110) mg/dL POC Glucose (mg/dL) 181 H 178 H (75-99) mg/dL HDL Cholesterol 24.0 L (40.0-60.0) mg/dL TSH (0.465-4.680) mIU/L Urine Protein (Negative) 02/05/21 02/05/21 02/05/21 Range/Units 04:39 04:39 07:08 RBC 3.74 L (4.30-5.90) m/uL Hgb 12.0 L (13.0-17.5) gm/dL Hct 35.4 L (39.0-53.0) % BUN (9.0-27.0) mg/dL Creatinine (0.6-1.5) mg/dL Est GFR (CKD-EPI)AfAm (60.0-200.0) Est GFR (CKD-EPI)NonAf (60.0-200.0) Glucose (70-110) mg/dL POC Glucose (mg/dL) 177 H (75-99) mg/dL HDL Cholesterol (40.0-60.0) mg/dL TSH 0.028 L (0.465-4.680) mIU/L Urine Protein (Negative) 02/05/21 02/05/21 Range/Units 11:39 12:52 RBC (4.30-5.90) m/uL Hgb (13.0-17.5) gm/dL Hct (39.0-53.0) % BUN (9.0-27.0) mg/dL Creatinine (0.6-1.5) mg/dL Est GFR (CKD-EPI)AfAm (60.0-200.0) Est GFR (CKD-EPI)NonAf (60.0-200.0) Glucose (70-110) mg/dL POC Glucose (mg/dL) 150 H (75-99) mg/dL HDL Cholesterol (40.0-60.0) mg/dL TSH (0.465-4.680) mIU/L Urine Protein Trace H (Negative) Assessment and Plan Assessment: Multi-vessel CAD -Cardiac monitoring -Cardiology consult -CT surgery consult -Trend troponin x 3 were negative -lexiscan stress test was positive -C showed multi-vessel disease. -Continue aspirin Kidney disease, acute versus chronic -Monitor for now -No baseline available for comparison Type II DM -Lispro insulin sliding scale blood glucose monitoring -Check A1c DVT prophylaxis -Heparin subq The patient is admitted with an anticipated less than 2 midnight stay for evaluation of chest pain. CODE STATUS: Full Code Discussed with: Patient Anticipated discharge date: in am Anticipated discharge place: Home
[2021-02-05 17:04] LABS: Glucose,Whole Blood 152 mg/dL (75-99)
[2021-02-05 19:59] LABS: Hemoglobin A1C 7.4 % (4.0-6.0)
[2021-02-05 20:30] LABS: Glucose,Whole Blood 90 mg/dL (75-99)
[2021-02-05] MEDS: LOSARTAN 50 MG TAB PO SCH (20:31)
[2021-02-05] MEDS: ATORVASTATIN 40 MG TAB PO SCH (20:31)
[2021-02-06 00:21] LABS: Hepatitis A Antibody IgM Non-Reactive (Non-Reactive); Hepatitis B Core IgM Non-Reactive (Non-Reactive); Hepatitis B Surface Antigen Non-Reactive (Non-Reactive); Hepatitis C IgG Antibody Non-Reactive (Non-Reactive)
[2021-02-06] MEDS: SODIUM CHLORIDE 0.9% 1,000 ML IV SCH ×2 (05:04→15:12)
[2021-02-06] MEDS: LEVOTHYROXINE 112 MCG TAB PO SCH (06:25)
[2021-02-06 07:38] LABS: Glucose,Whole Blood 199 mg/dL (75-99)
[2021-02-06] MEDS: HEPARIN SODIUM,PORCINE/PF 5,000 UNIT/0.5 ML SYRINGE SQ SCH (08:39)
[2021-02-06] MEDS: ASPIRIN 81 MG PO SCH (08:39)
[2021-02-06] MEDS: METOPROLOL TARTRATE 50 MG TAB PO SCH (08:39)
[2021-02-06] MEDS: INSULIN PUMP MEAL BOLUS 1 UNIT MISC MISCELLANE SCH ×2 (08:39→13:38)
[2021-02-06] MEDS: ISOSORBIDE MONONITRATE ER 30 MG TAB.ER.24H PO SCH (08:39)
[2021-02-06] MEDS: VERAPAMIL SR 120 MG TABLET.ER PO SCH (08:40)
[2021-02-06] MEDS: FINASTERIDE 5 MG TAB PO SCH (08:40)
[2021-02-06] MEDS: DOXAZOSIN 4 MG TAB PO SCH (08:40)
[2021-02-06] MEDS: PENTOXIFYLLINE 400 MG TABLET.ER PO SCH (08:40)
--- NOTE | 2021-02-06 08:49 | PN ---
PROGRESS NOTE Mr. Ford is a 76-year-old male with known history of hypertension, hyperlipidemia, as well as a history of diabetes mellitus, who presented with symptoms of chest discomfort, but no evidence of myocardial infarction, had and underwent a myocardial perfusion imaging that revealed evidence of inducible ischemia. His cardiac catheterization revealed severe triple-vessel coronary artery disease and calcified arteries. He was evaluated by Dr. Rosario for possible coronary bypass grafting. He is doing well this morning. He is denying any chest pain. No dizziness. No palpitation. No nausea. He continued on aspirin once a day, Lipitor 4 mg daily, ( ) of 4 mg twice a day, Proscar 5 mg daily, insulin, isosorbide mononitrate 30 mg daily, losartan 100 mg daily, metoprolol tartrate 50 mg twice a day, verapamil SR 120 mg daily, Trental 400 mg twice a day. PHYSICAL EXAMINATION: Blood pressure 160/70 mmHg. This morning it was in the 120s, and the 130s last night. Heart rate in 60s. Lungs: Clear. Heart: Regular rhythm S1, S2. No S3. No rub. Abdomen: Soft, nontender, right radial pulse intact. Extremities: No edema. LAB DATA: Lab data this morning are pending. IMPRESSION: 1. Multivessel coronary artery disease and calcified arteries. 2. Hypertension. 3. Hyperlipidemia. 4. Diabetes mellitus. 5. Chronic kidney disease. RECOMMENDATION: I have discussed with the patient the findings I have recommended proceeding with coronary bypass grafting, in view of history of diabetes and anatomy. The rationale behind the angioplasty versus CABG was discussed with the patient. He would like to think about it further. From the cardiac standpoint, he should be able to be discharged home today and follow up with Dr. Bryan next week to further discuss the findings and guide the treatment. MMODL / IJN: [id number] /
--- NOTE | 2021-02-06 10:15 | P.VSCSTY ---
Greater Saphenous Vein Mapping This is bilateral lower extremity greater saphenous vein mapping. Date of service: 02/05/2021 Vein quality and ultrasound appearance: We see no intraluminal thrombus. There is some intimal thickening noted on the right.. Vein size groin right : 7.5 x 8.3 groin left: 7.1 x 5.1 High thigh right: 5.7 x 4.6 high thigh left: 6.1 x 4.8 Mid thigh right: 3.5 x 3.6 mid thigh left: 5.2 x 4.1 Above-knee right: 4.1 x 3.2 above-knee left: 4.5 x 4.3 Below knee right: 3.9 x 3.8 below-knee left: 4.1 x 4.1 Mid calf right: 3.7 x 3.5 mid calf left: 4.9 x 3.5 Ankle right: 2.6 x 2.6 ankle left: 3.2 x 2.7 Impression: Usable bilateral greater saphenous vein. Would utilize the left preferentially due to the intimal thickening on the right..
[2021-02-06 11:55] LABS: Glucose,Whole Blood 122 mg/dL (75-99)
[2021-02-06 15:55] VITALS: BP 119/64; PULSE 66; RESP 16; TEMP 98.1
--- NOTE | 2021-02-06 16:02 | P.DS ---
Providers Date of admission: 02/05/21 12:14 Expected date of discharge: 02/06/21 Attending physician: Amberly Buitrago MD Consults: 02/04/21 04:15 Consult Physician Urgent Consulting Provider: Caitie Jane Consult Reason/Comments: cp Do you want consulting provider notified?: Yes 02/05/21 09:46 Consult Physician Routine Consulting Provider: Richmond Watts Consult Reason/Comments: possible CABG Do you want consulting provider notified?: Yes Primary care physician: Physician Nonstaff Hospital Course: Discharge Diagnosis: Multi-vessel coronary artery disease with calcified arteries, recommendations for CABG Hypertension Hyperlipidemia Hypothyroidism Diabetes mellitus type 2 Hospital Course: Patient is a 76-year-old male with a past medical history of CAD, hypertension, hyperlipidemia, and diabetes mellitus type 2. He presented to the emergency department on 02/04/21 with a chief complaint of chest pain. EKG completed showing sinus rhythm at 64 bpm with occasional PACs. Troponins trended and all negative at less than 0.012. Chest x-ray completed negative for acute cardiopulmonary process. stress test completed revealing stress-induced ischemic changes along the inferior wall. Patient underwent a cardiac cath revealing severe triple- vessel coronary artery disease with calcified arteries in which cardiology is recommending CABG at this time. Vascular surgery was consulted. Carotid Dopplers completed revealing moderate atherosclerotic changes without significant stenosis in either internal carotid artery.venous mapping was completed revealing usable bilateral greater saphenous veins. after long discussion with cardiovascular surgery and over short and damage clerk, patient has decided to proceed with CABG on an outpatient basis.he is to follow-up with Dr. Bryan on 02/12/21 for further discussion and scheduling of cardiac bypass surgery. patient to continue daily medication regimen with atorvastatin, Imdur, losartan, verapamil, and aspirin. Physical examination: Patient seen and examined at bedside this morning. Patient reports he is feeling great he was sitting up in the chair and requesting discharge home. Patient reports plans to proceed with coronary artery bypass surgery on an outpatient basis. Patient currently denies having any headache, lightheadedness, dizziness, chest pain or palpitations, shortness of breath, dyspnea with exertion, or any other complaints. Patient instructed to keep all doctor's appointments as scheduled and continue to take medication as directed without missing any doses. Patient instructed he will need to return to the emergency department immediately if he begins to experience chest pain or pressure or any other cardiac complaints including shortness of breath. Patient verbalized understanding and is stable for discharge home at this time. Vital signs reviewed and stable. General: Nontoxic, no distress and appears stated age. Derm: Skin warm and dry, normal coloration for ethnicity. Head: Atraumatic, normocephalic and symmetric. Eyes: EOMs intact, no lid lag, and anicteric sclera Mouth: no lip lesions, mucus membranes moist Cardiovascular: regular rate and rhythm with normal S1S2, no murmur, positive posterior tibial pulses bilaterally, and cap refill < 2 seconds. Lungs: Respirations even, regular, and unlabored on room air. Lungs CTA bilaterally, no rhonchi, no rales, no wheezing, and no accessory muscle usage. Abdominal: soft, nontender to palpation, no guarding, no appreciable organomegaly Ext: ROM intact. No gross muscle atrophy, no edema, no contractures Neuro: Speech clear, face symmetrical and CN II-XII grossly intact with no noted focal neuro deficits Psych: Alert and oriented to person, place, time, and situation. Appropriate and pleasant affect. A total of 45 minutes of time were spent preparing this complex discharge summary. Plan - Discharge Summary Discharge Rx Participant: No New Discharge Prescriptions: Continue Albuterol Inhaler [Ventolin Hfa Inhaler] 2 puff INHALATION RT-QID PRN PRN Reason: Shortness Of Breath Atorvastatin [Lipitor] 40 mg PO HS Doxazosin [Cardura] 4 mg PO BID Finasteride [Proscar] 5 mg PO DAILY Isosorbide Mononitrate ER [Imdur] 30 mg PO DAILY Levothyroxine Sodium [Synthroid] 124 mcg PO DAILY Losartan Potassium 100 mg PO HS Metoprolol Tartrate [Lopressor] 50 mg PO BID Pentoxifylline 400 mg PO BID Econazole 1% Cream [Spectazole] 1 applic TOPICAL DAILY PRN PRN Reason: Skin Irritation Ammonium Lactate Lotion [Lac-Hydrin 12% Lotion] 1 applic TOPICAL DAILY PRN PRN Reason: Dry Skin Aspirin EC [Ecotrin] 325 mg PO DAILY Cetirizine HCl [Zyrtec] 10 mg PO DAILY PRN PRN Reason: Allergy Symptoms INSULIN LISPRO (For Pump) [humaLOG (For Pump)] 0.01 units SQ-PUMP CONTINUOUS Verapamil HCl [Verapamil ER] 120 mg PO HS Verapamil HCl [Verapamil ER] 240 mg PO DAILY Zolpidem [Ambien] 5 mg PO HS PRN PRN Reason: Insomnia Discharge Medication List Albuterol Inhaler [Ventolin Hfa Inhaler] 2 puff INHALATION RT-QID PRN 02/04/21 [History] Ammonium Lactate Lotion [Lac-Hydrin 12% Lotion] 1 applic TOPICAL DAILY PRN 02/04/21 [History] Aspirin EC [Ecotrin] 325 mg PO DAILY 02/04/21 [History] Atorvastatin [Lipitor] 40 mg PO HS 02/04/21 [History] Cetirizine HCl [Zyrtec] 10 mg PO DAILY PRN 02/04/21 [History] Doxazosin [Cardura] 4 mg PO BID 02/04/21 [History] Econazole 1% Cream [Spectazole] 1 applic TOPICAL DAILY PRN 02/04/21 [History] Finasteride [Proscar] 5 mg PO DAILY 02/04/21 [History] INSULIN LISPRO (For Pump) [humaLOG (For Pump)] 0.01 units SQ-PUMP CONTINUOUS 02/04/21 [History] Isosorbide Mononitrate ER [Imdur] 30 mg PO DAILY 02/04/21 [History] Levothyroxine Sodium [Synthroid] 124 mcg PO DAILY 02/04/21 [History] Losartan Potassium 100 mg PO HS 02/04/21 [History] Metoprolol Tartrate [Lopressor] 50 mg PO BID 02/04/21 [History] Pentoxifylline 400 mg PO BID 02/04/21 [History] Verapamil HCl [Verapamil ER] 120 mg PO HS 02/04/21 [History] Verapamil HCl [Verapamil ER] 240 mg PO DAILY 02/04/21 [History] Zolpidem [Ambien] 5 mg PO HS PRN 02/04/21 [History] Follow up Appointment(s)/Referral(s): Thu Dhaliwal DO [REFERRING] - 02/08/21 10:20 am Tai Rosario MD [STAFF PHYSICIAN] - As Needed (Please contact our office if you decide to schedule open heart surgery) Leona Bryan MD [STAFF PHYSICIAN] - 02/12/21 3:15 pm Patient Instructions/Handouts: *Surgery [facility] - After Heart Catheterization - [facility] Instructions, Heart Healthy Diet (DC), After Radial Heart Catheterization (GEN) Discharge Disposition: HOME SELF-CARE
--- NOTE | 2021-02-08 13:36 | ECHOF ---
Referral Reason:Chest pain MEASUREMENTS -------- HEIGHT: 180.3 cm WEIGHT: 100.7 kg BP: IVSd: 1.4 cm (0.6 - 1.1) LVIDd: 3.9 cm (3.9 - 5.3) LVPWd: 1.4 cm (0.6 - 1.1) IVSs: 1.6 cm LVIDs: 2.4 cm LVPWs: 1.9 cm LAESV Index (A-L): 33.90 ml/m Ao Diam: 3.5 cm (2.0 - 3.7) AV Cusp: 2.0 cm (1.5 - 2.6) LA Diam: 2.7 cm (2.7 - 3.8) MV EXCURSION: 21.866 mm (> 18.000) MV EF SLOPE: 276 mm/s (70 - 150) EPSS: 1.7 cm MV E Jaxon: 0.84 m/s MV DecT: 270 ms MV A Jaxon: 1.25 m/s MV E/A Ratio: 0.67 RAP: 5.00 mmHg RVSP: 12.95 mmHg FINDINGS -------- Sinus rhythm. This was a technically adequate study. The left ventricular size is normal. There is moderate concentric left ventricular hypertrophy. O verall left ventricular systolic function is normal with, an EF between 55 - 60 %. The diastolic fi lling pattern indicates impaired relaxation 15.43. Normal LAP Grade 1 Diastolic Dysfunction. The right ventricle is normal in size. LA is midly dilated 29-33ml/m2. The right atrial size is normal. There is mild to moderate aortic valve sclerosis. The mitral valve is normal. There is trace mitral regurgitation. The tricuspid valve appears structurally normal. Trace tricuspid regurgitation present. Right vickey tricular systolic pressure is normal at < 35 mmHg. There is no pulmonic regurgitation present. The aortic root size is normal. Normal inferior vena cava with normal inspiratory collapse consistent with estimated right atrial pre ssure of 5 mmHg. There is no pericardial effusion. CONCLUSIONS -------- 1. There is moderate concentric left ventricular hypertrophy. 2. Overall left ventricular systolic function is normal with, an EF between 55 - 60 %. 3. Normal LAP Grade 1 Diastolic Dysfunction. 4. LA is midly dilated 29-33ml/m2. 5. There is mild to moderate aortic valve sclerosis. 6. There is trace mitral regurgitation. 7. Trace tricuspid regurgitation present. 8. There is no pericardial effusion. CHRONIC CARE NURSE: Beatrice Rodriguez RDCS
== END 2021-02-06 17:23 | disposition home or self-care (01) | DRG 287 ==
LOC: EC 02:13 → 6NMEDSUR 04:16 → OBSVTOIN 02-05 12:14
PROVIDERS: ADMIT Internal Medicine; ATTEND Internal Medicine
PROC: 4A023N7 Measurement of Cardiac Sampling and Pressure, Left Heart, Percutaneous Approach (ICD-10-PCS; principal; 2021-02-05 07:30)
PROC: B2111ZZ Fluoroscopy of Multiple Coronary Arteries using Low Osmolar Contrast (ICD-10-PCS; principal; 2021-02-05 07:30)
DX: I25.10 Atherosclerotic heart disease of native coronary artery without angina pectoris (principal); I25.2 Old myocardial infarction; N18.30 Chronic kidney disease, stage 3 unspecified; N40.0 Benign prostatic hyperplasia without lower urinary tract symptoms; E03.9 Hypothyroidism, unspecified; E11.22 Type 2 diabetes mellitus with diabetic chronic kidney disease; E11.40 Type 2 diabetes mellitus with diabetic neuropathy, unspecified; E66.9 Obesity, unspecified; Z68.31 Body mass index [BMI] 31.0-31.9, adult; E78.5 Hyperlipidemia, unspecified; I12.9 Hypertensive chronic kidney disease with stage 1 through stage 4 chronic kidney disease, or unspecified chronic kidney disease; G24.9 Dystonia, unspecified; I49.1 Atrial premature depolarization; Z79.4 Long term (current) use of insulin; Z79.82 Long term (current) use of aspirin; Z79.890 Hormone replacement therapy; Z79.899 Other long term (current) drug therapy; Z20.822 Contact with and (suspected) exposure to COVID-19; Z90.89 Acquired absence of other organs; Z98.42 Cataract extraction status, left eye; Z98.41 Cataract extraction status, right eye; Z80.6 Family history of leukemia; Z82.49 Family history of ischemic heart disease and other diseases of the circulatory system; Z83.3 Family history of diabetes mellitus; Z87.01 Personal history of pneumonia (recurrent); Z87.891 Personal history of nicotine dependence; Z95.1 Presence of aortocoronary bypass graft; Z96.41 Presence of insulin pump (external) (internal); Z88.8 Allergy status to other drugs, medicaments and biological substances
CPT/HCPCS: 36415; 71046; 78452; 80048; 80053; 80061; 80074; 81003; 83036; 83690; 83735; 83880; 84439; 84443; 84484; 85025; 85027; 85610; 85730; 87070; 93005; 93017; 93306; 93458; 93880; 93970; 94150; 99285

== ENCOUNTER 2021-02-08 08:04 | Inpatient (IN) | payer MEDICARE ==
[2021-02-08] MEDS ORDERED: NITROGLYCERIN OINT 1 INCH/GM PACKET TOPICAL STA (08:31)
[2021-02-08] MEDS ORDERED: ASPIRIN 81 MG PO STA (08:31)
--- NOTE | 2021-02-08 08:33 | ED ---
General Adult HPI - General Chief complaint: Recheck/Abnormal Lab/Rx Stated complaint: Hypertensive Time Seen by Provider: 02/08/21 08:12 Source: patient, family, RN notes reviewed Mode of arrival: wheelchair Limitations: no limitations - History of Present Illness Initial comments: Patient is a pleasant 76-year-old male presenting to the emergency department with concerns for blood pressure. Patient woke up around 4 AM and checked his blood pressure at 195/85. Patient was recently discharged from the hospital with similar problems. Patient states no changes in blood pressure medication was done. Patient states there was evaluation for his heart and determination that he will need CABG. Patient does admit to having some mild chest pressure that has been present for the past week or more. Patient is still having some chest pressure. No dyspnea. No nausea. No diaphoresis. Patient does admit to feeling a little bit anxious. - Related Data Home Medications Medication Instructions Recorded Confirmed Albuterol Inhaler [Ventolin Hfa 2 puff INHALATION RT-QID PRN 02/04/21 02/08/21 Inhaler] Ammonium Lactate Lotion 1 applic TOPICAL DAILY PRN 02/04/21 02/08/21 [Lac-Hydrin 12% Lotion] Aspirin EC [Ecotrin] 325 mg PO DAILY 02/04/21 02/08/21 Atorvastatin [Lipitor] 40 mg PO HS 02/04/21 02/08/21 Cetirizine HCl [Zyrtec] 10 mg PO DAILY PRN 02/04/21 02/08/21 Doxazosin [Cardura] 4 mg PO BID 02/04/21 02/08/21 Econazole 1% Cream [Spectazole] 1 applic TOPICAL DAILY PRN 02/04/21 02/08/21 Finasteride [Proscar] 5 mg PO DAILY 02/04/21 02/08/21 INSULIN LISPRO (For Pump) [humaLOG 0.01 units SQ-PUMP CONTINUOUS 02/04/21 02/08/21 (For Pump)] Isosorbide Mononitrate ER [Imdur] 30 mg PO DAILY 02/04/21 02/08/21 Levothyroxine Sodium [Synthroid] 124 mcg PO DAILY 02/04/21 02/08/21 Losartan Potassium 100 mg PO HS 02/04/21 02/08/21 Metoprolol Tartrate [Lopressor] 50 mg PO BID 02/04/21 02/08/21 Pentoxifylline 400 mg PO BID 02/04/21 02/08/21 Verapamil HCl [Verapamil ER] 120 mg PO HS 02/04/21 02/08/21 Verapamil HCl [Verapamil ER] 240 mg PO DAILY 02/04/21 02/08/21 Zolpidem [Ambien] 5 mg PO HS PRN 02/04/21 02/08/21 Allergies Allergy/AdvReac Type Severity Reaction Status Date / Time amlodipine [From Lotrel] AdvReac Cough Verified 02/08/21 09:27 benazepril [From Lotrel] AdvReac Cough Verified 02/08/21 09:27 cortisone AdvReac elevates Verified 02/08/21 09:27 blood sugar Review of Systems ROS Statement: Those systems with pertinent positive or pertinent negative responses have been documented in the HPI. ROS Other: All systems not noted in ROS Statement are negative. Constitutional: Denies: fever Eyes: Denies: eye pain ENT: Denies: ear pain Respiratory: Denies: cough Cardiovascular: Reports: as per HPI Endocrine: Denies: fatigue Gastrointestinal: Denies: abdominal pain Genitourinary: Denies: dysuria Musculoskeletal: Denies: back pain Skin: Denies: rash Neurological: Denies: weakness Past Medical History Past Medical History: Coronary Artery Disease (CAD), Diabetes Mellitus, Hyperlipidemia, Hypertension, Myocardial Infarction ([place]), Pneumonia, Prostate Disorder, Thyroid Disorder History of Any Multi-Drug Resistant Organisms: None Reported Past Surgical History: Tonsillectomy Additional Past Surgical History / Comment(s): Bilateral carpal tunnel surgery; bilateral cataracts Past Anesthesia/Blood Transfusion Reactions: No Reported Reaction Past Psychological History: No Psychological Hx Reported Smoking Status: Former smoker Past Alcohol Use History: None Reported Past Drug Use History: None Reported - Past Family History Father Family Medical History: Diabetes Mellitus, Myocardial Infarction ([place]), Renal Disease Mother Family Medical History: Cancer Additional Family Medical History / Comment(s): Leukemia General Exam Limitations: no limitations General appearance: alert, in no apparent distress Head exam: Present: normocephalic Eye exam: Present: normal appearance Neck exam: Present: normal inspection Respiratory exam: Present: normal lung sounds bilaterally Cardiovascular Exam: Present: regular rate, normal rhythm Expanded Peripheral pulses: 2+: Radial (R), Radial (L), Posterior Tibialis (R), Posterior Tibialis (L) GI/Abdominal exam: Present: soft. Absent: tenderness Extremities exam: Present: normal inspection. Absent: pedal edema, calf tenderness Neurological exam: Present: alert Psychiatric exam: Present: normal affect, normal mood Skin exam: Present: normal color Course Vital Signs 02/08/21 02/08/21 02/08/21 08:06 08:19 08:30 Temperature 98.0 F Pulse Rate 86 64 61 Respiratory 16 17 18 Rate Blood Pressure 133/66 119/61 O2 Sat by Pulse 96 97 94 L Oximetry 02/08/21 02/08/21 09:00 09:30 Temperature Pulse Rate 62 61 Respiratory 17 17 Rate Blood Pressure 118/58 121/59 O2 Sat by Pulse 96 95 Oximetry EKG Findings - EKG Comments: EKG Findings:: Sinus rhythm with a rate of 66. MT 170. QRS 74. QT 414. QTC 434. Normal axis. Septal Q waves. No acute ST change. Previous EKG was reviewed. Medical Decision Making - Medical Decision Making Patient reevaluated and resting comfortably in bed. Patient updated on results and plan. Case was discussed with Dr. Landa, who will admit covering for Dr. Yvonne uribe. Cardiology will be placed on consult. Chest x-ray does have some patchy infiltrates. COVID-19 testing and BNP will be added. - Lab Data Result diagrams: 02/08/21 08:15 02/08/21 08:15 Lab Results 02/08/21 02/08/21 02/08/21 Range/Units 08:15 08:15 08:15 WBC 7.9 (3.8-10.6) k/uL RBC 3.57 L (4.30-5.90) m/uL Hgb 11.3 L (13.0-17.5) gm/dL Hct 32.8 L (39.0-53.0) % MCV 91.7 (80.0-100.0) fL MCH 31.7 (25.0-35.0) pg MCHC 34.5 (31.0-37.0) g/dL RDW 12.9 (11.5-15.5) % Plt Count 181 (150-450) k/uL MPV 7.8 Neutrophils % 81 % Lymphocytes % 8 % Monocytes % 5 % Eosinophils % 2 % Basophils % 1 % Neutrophils # 6.4 (1.3-7.7) k/uL Lymphocytes # 0.7 L (1.0-4.8) k/uL Monocytes # 0.4 (0-1.0) k/uL Eosinophils # 0.2 (0-0.7) k/uL Basophils # 0.0 (0-0.2) k/uL PT 10.6 (9.0-12.0) sec INR 1.0 (<1.2) APTT 22.9 (22.0-30.0) sec Sodium 131 L (137-145) mmol/L Potassium 4.8 (3.5-5.1) mmol/L Chloride 101 (98-107) mmol/L Carbon Dioxide 21 L (22-30) mmol/L Anion Gap 9 mmol/L BUN 41 H (9-20) mg/dL Creatinine 1.97 H (0.66-1.25) mg/dL Est GFR (CKD-EPI)AfAm 37 (>60 ml/min/1.73 sqM) Est GFR (CKD-EPI)NonAf 32 (>60 ml/min/1.73 sqM) Glucose 254 H (74-99) mg/dL Calcium 9.1 (8.4-10.2) mg/dL Magnesium 1.7 (1.6-2.3) mg/dL Total Bilirubin 0.3 (0.2-1.3) mg/dL AST 57 (17-59) U/L ALT 56 H (4-49) U/L Alkaline Phosphatase 87 (38-126) U/L Troponin I (0.000-0.034) ng/mL Total Protein 5.8 L (6.3-8.2) g/dL Albumin 3.4 L (3.5-5.0) g/dL 02/08/21 Range/Units 08:15 WBC (3.8-10.6) k/uL RBC (4.30-5.90) m/uL Hgb (13.0-17.5) gm/dL Hct (39.0-53.0) % MCV (80.0-100.0) fL MCH (25.0-35.0) pg MCHC (31.0-37.0) g/dL RDW (11.5-15.5) % Plt Count (150-450) k/uL MPV Neutrophils % % Lymphocytes % % Monocytes % % Eosinophils % % Basophils % % Neutrophils # (1.3-7.7) k/uL Lymphocytes # (1.0-4.8) k/uL Monocytes # (0-1.0) k/uL Eosinophils # (0-0.7) k/uL Basophils # (0-0.2) k/uL PT (9.0-12.0) sec INR (<1.2) APTT (22.0-30.0) sec Sodium (137-145) mmol/L Potassium (3.5-5.1) mmol/L Chloride (98-107) mmol/L Carbon Dioxide (22-30) mmol/L Anion Gap mmol/L BUN (9-20) mg/dL Creatinine (0.66-1.25) mg/dL Est GFR (CKD-EPI)AfAm (>60 ml/min/1.73 sqM) Est GFR (CKD-EPI)NonAf (>60 ml/min/1.73 sqM) Glucose (74-99) mg/dL Calcium (8.4-10.2) mg/dL Magnesium (1.6-2.3) mg/dL Total Bilirubin (0.2-1.3) mg/dL AST (17-59) U/L ALT (4-49) U/L Alkaline Phosphatase (38-126) U/L Troponin I <0.012 (0.000-0.034) ng/mL Total Protein (6.3-8.2) g/dL Albumin (3.5-5.0) g/dL - Radiology Data Radiology results: image reviewed (Chest x-ray does have some mild patchy opacities mid and lower lungs.) Disposition Clinical Impression: Chest pain Disposition: ADMITTED IP TO THIS HOSP Is patient prescribed a controlled substance at d/c from ED?: No Referrals: Thu Dhaliwal DO [Primary Care Provider] - 1-2 days Decision Time: 10:18
[2021-02-08 08:59] LABS: Basophils % (A) 1 %; Eosinophils # (A) 0.2 k/uL (0-0.7); Eosinophils % (A) 2 %; HCT 32.8 % (39.0-53.0); HGB 11.3 gm/dL (13.0-17.5); Lymphocytes # (A) 0.7 k/uL (1.0-4.8); Lymphocytes % (A) 8 %; MCH 31.7 pg (25.0-35.0); MCHC 34.5 g/dL (31.0-37.0); MCV 91.7 fL (80.0-100.0); Mean Platelet Volume 7.8; Monocytes # (A) 0.4 k/uL (0-1.0); Monocytes % (A) 5 %; Neutrophils # (A) 6.4 k/uL (1.3-7.7); Neutrophils % (A) 81 %; Platelet Count 181 k/uL (150-450); RBC 3.57 m/uL (4.30-5.90); RDW 12.9 % (11.5-15.5); WBC 7.9 k/uL (3.8-10.6)
[2021-02-08 09:07] LABS: Albumin 3.4 g/dL (3.5-5.0); Calcium 9.1 mg/dL (8.4-10.2); Magnesium 1.7 mg/dL (1.6-2.3); Potassium 4.8 mmol/L (3.5-5.1); Total Bilirubin 0.3 mg/dL (0.2-1.3); Total Protein 5.8 g/dL (6.3-8.2)
[2021-02-08 09:08] LABS: Partial Thromboplastin Time 22.9 sec (22.0-30.0); Prothrombin Time 10.6 sec (9.0-12.0)
--- NOTE | 2021-02-08 09:14 | XR ---
EXAMINATION TYPE: XR chest 2V DATE OF EXAM: 02/08/2021 COMPARISON: 02/05/2021 HISTORY: 76-year-old male chest pain TECHNIQUE: PA and lateral views FINDINGS: Heart normal size. Patchy opacities mid and lower lungs. No sizable effusion. IMPRESSION: Mild patchy opacities mid and lower lungs. Findings could represent prominent areas of atelectasis, p ulmonary vascular congestion, or atypical pneumonias. Clinically correlate.
[2021-02-08] MEDS ORDERED: NALOXONE 0.4 MG/ML 1 ML VIAL IV PRN (10:19)
[2021-02-08] MEDS ORDERED: NITROGLYCERIN SL TABS 0.4 MG TAB SUBLINGUAL PRN (10:20)
[2021-02-08] MEDS ORDERED: ZOLPIDEM 5 MG TAB PO PRN (11:05)
[2021-02-08] MEDS ORDERED: LORATADINE 10 MG TAB PO PRN (11:05)
[2021-02-08] MEDS ORDERED: ALBUTEROL NEBULIZED 2.5 MG/3 ML INHALATION PRN (11:05)
[2021-02-08 12:05] LABS: Glucose,Whole Blood 142 mg/dL (75-99)
[2021-02-08] MEDS ORDERED: NITROGLYCERIN OINT 1 INCH/GM PACKET TOPICAL SCH (13:00)
--- NOTE | 2021-02-08 14:35 | P.CRDCN ---
History of Present Illness History of present illness: HISTORY OF PRESENT ILLNESS: This is a 76-year-old male with a past medical history significant for hypertension, hyperlipidemia, diabetes mellitus, coronary artery disease, former tobacco use. Patient states he had a heart attack about 10 years ago. He reports having a cardiac cath at that time and did not require stenting. Patient follows in the office with Dr. Bryan. We have been asked to see the patient in consultation for chest pain. Patient states he woke up at night feeling anxious and that his blood pressure was high. He took his blood pressure and it was 1 90s/80s. He also has been having intermittent chest pain. Patient recent admitted 02/04/21 with chest pain. Patient underwent Le scan stress test revealed stress induced ischemic changes along the inferior wall. Mild dyskinesia distal inferior wall. EF 51%. Cardiac catheterization was recommended at that time. Echocardiogram revealed left ventricular systolic function is normal with EF of 55-60%, LA is mildly dilated, mild to moderate aortic valve sclerosis, trace mitral regurgitation, trace tricuspid regurgitation. Patient underwent cardiac catheter patient Dr. Bryan which revealed heavily calcified coronary system including left main. LV calcified vessel with a long 50-60% lesion involving the proximal LAD. Appears to be eccentric 80-90% stenosis at the origin of the first diagonal. Also 70% lesion in the distal LAD. 60-70% lesion in the left circumflex. 60-70% in the distal RCA. 95% stenosis involving the origin of the PLV branch. At that time coronary artery bypass graft was recommended. At the time patient refused to undergo CABG. DIAGNOSTICS: EKG reveals sinus rhythm with premature atrial complexes, heart rate 66, nonspecific STT wave abnormalities. Laboratory data reviewed WBC 7.9, hemoglobin 11.3, platelets 181, sodium 131, potassium 4.8, BUN 41, serum creatinine 1.9, troponin negative 2, magnesium 1.7, COVID-19 negative Chest x-ray reveals mild patchy opacities in mid and lower lungs. REVIEW OF SYSTEMS: At the time of my exam: CONSTITUTIONAL: Denies fever or chills. HEENT: Denies blurred vision, vision changes, or eye pain. Denies hemoptysis CARDIOVASCULAR: +chest pain Denies orthopnea. Denies PND. Denies palpitations RESPIRATORY: Denies shortness of breath. GASTROINTESTINAL: Denies abdominal pain. Denies nausea or vomiting. HEMATOLOGIC: Denies bleeding disorders. GENITOURINARY: Denies any blood in urine. SKIN: Denies pruitis. Denies rash. PHYSICAL EXAM: VITAL SIGNS: Reviewed. GENERAL: Well-developed in no acute distress. HEENT: Head is normocephalic. Pupils are equal, round. Sclerae anicteric. Mucous membranes of the mouth are moist. Neck supple. No JVD or thyromegaly LUNGS: Respirations even and unlabored. Lungs essentially clear to auscultation bilaterally. HEART: Regular rate and rhythm. S1 and S2 heard. No murmur ABDOMEN: Soft. Nondistended. Nontender. EXTREMITIES: Normal range of motion. No clubbing or cyanosis. Peripheral pulses intact. No lower extremity edema NEUROLOGIC: Awake and alert. Oriented x 3. ASSESSMENT: Coronary artery disease with prior myocardial infarction treated medically Chest pain Hypertension Hyperlipidemia Type 2 Diabetes History of NSTEMI, 2009, not requiring PCI Obesity, BMI 31.0 PLAN: Resume home cardiac medications Consultation was placed to cardiothoracic surgery for surgical revascularization recommendations. Further recommendations pending patient course Nurse practitioner note has been reviewed by physician. Signing provider agrees with the documented findings, assessment, and plan of care. Past Medical History Past Medical History: Coronary Artery Disease (CAD), Chest Pain / Angina, Diabetes Mellitus, Eye Disorder, Hearing Disorder / Deafness, Hyperlipidemia, Hypertension, Myocardial Infarction ([place]), Pneumonia, Prostate Disorder, Renal Disease, Thyroid Disorder Additional Past Medical History / Comment(s): History of peripheral neuropathy. Last Myocardial Infarction Date:: unk History of Any Multi-Drug Resistant Organisms: None Reported Past Surgical History: Tonsillectomy Additional Past Surgical History / Comment(s): Bilateral carpal tunnel surgery; bilateral cataracts Past Anesthesia/Blood Transfusion Reactions: No Reported Reaction Past Psychological History: No Psychological Hx Reported Smoking Status: Former smoker Past Alcohol Use History: None Reported Past Drug Use History: None Reported - Past Family History Father Family Medical History: Diabetes Mellitus, Myocardial Infarction ([place]), Renal Disease Mother Family Medical History: Cancer, Hypertension Additional Family Medical History / Comment(s): Leukemia Medications and Allergies Home Medications Medication Instructions Recorded Confirmed Type Albuterol Inhaler [Ventolin Hfa 2 puff INHALATION RT-QID PRN 02/04/21 02/08/21 History Inhaler] Ammonium Lactate Lotion 1 applic TOPICAL DAILY PRN 02/04/21 02/08/21 History [Lac-Hydrin 12% Lotion] Aspirin EC [Ecotrin] 325 mg PO DAILY 02/04/21 02/08/21 History Atorvastatin [Lipitor] 40 mg PO HS 02/04/21 02/08/21 History Cetirizine HCl [Zyrtec] 10 mg PO DAILY PRN 02/04/21 02/08/21 History Doxazosin [Cardura] 4 mg PO BID 02/04/21 02/08/21 History Econazole 1% Cream [Spectazole] 1 applic TOPICAL DAILY PRN 02/04/21 02/08/21 History Finasteride [Proscar] 5 mg PO DAILY 02/04/21 02/08/21 History INSULIN LISPRO (For Pump) [humaLOG 0.01 units SQ-PUMP CONTINUOUS 02/04/21 02/08/21 History (For Pump)] Isosorbide Mononitrate ER [Imdur] 30 mg PO DAILY 02/04/21 02/08/21 History Levothyroxine Sodium [Synthroid] 224 mcg PO DAILY 02/04/21 02/08/21 History Losartan Potassium 100 mg PO HS 02/04/21 02/08/21 History Metoprolol Tartrate [Lopressor] 50 mg PO BID 02/04/21 02/08/21 History Pentoxifylline 400 mg PO BID 02/04/21 02/08/21 History Verapamil HCl [Verapamil ER] 120 mg PO HS 02/04/21 02/08/21 History Verapamil HCl [Verapamil ER] 240 mg PO DAILY 02/04/21 02/08/21 History Zolpidem [Ambien] 5 mg PO HS PRN 02/04/21 02/08/21 History Allergies Allergy/AdvReac Type Severity Reaction Status Date / Time amlodipine [From Lotrel] AdvReac Cough Verified 02/08/21 09:27 benazepril [From Lotrel] AdvReac Cough Verified 02/08/21 09:27 cortisone AdvReac elevates Verified 02/08/21 09:27 blood sugar Physical Exam Vitals: Vital Signs Temp Pulse Pulse Resp BP BP Pulse Ox 02/08/21 12:00 97.8 F 65 16 152/70 99 02/08/21 09:30 61 17 121/59 95 02/08/21 09:00 62 17 118/58 96 02/08/21 08:30 61 18 119/61 94 L 02/08/21 08:19 64 17 97 02/08/21 08:06 98.0 F 86 16 133/66 96 Intake and Output 02/07/21 02/08/21 02/08/21 22:59 06:59 14:59 Other: Weight 101.151 kg Results 02/08/21 08:15 02/08/21 08:15 Cardiac Enzymes 02/08/21 02/08/21 02/08/21 Range/Units 08:15 08:15 11:20 AST 57 (17-59) U/L Troponin I <0.012 <0.012 (0.000-0.034) ng/mL Coagulation 02/08/21 Range/Units 08:15 PT 10.6 (9.0-12.0) sec APTT 22.9 (22.0-30.0) sec CBC 02/08/21 Range/Units 08:15 WBC 7.9 (3.8-10.6) k/uL RBC 3.57 L (4.30-5.90) m/uL Hgb 11.3 L (13.0-17.5) gm/dL Hct 32.8 L (39.0-53.0) % Plt Count 181 (150-450) k/uL Comprehensive Metabolic Panel 02/08/21 Range/Units 08:15 Sodium 131 L (137-145) mmol/L Potassium 4.8 (3.5-5.1) mmol/L Chloride 101 (98-107) mmol/L Carbon Dioxide 21 L (22-30) mmol/L BUN 41 H (9-20) mg/dL Creatinine 1.97 H (0.66-1.25) mg/dL Glucose 254 H (74-99) mg/dL Calcium 9.1 (8.4-10.2) mg/dL AST 57 (17-59) U/L ALT 56 H (4-49) U/L Alkaline Phosphatase 87 (38-126) U/L Total Protein 5.8 L (6.3-8.2) g/dL Albumin 3.4 L (3.5-5.0) g/dL Current Medications Generic Name Dose Route Start Last Admin Trade Name Freq PRN Reason Stop Dose Admin Albuterol Sulfate 2.5 mg 02/08/21 11:05 Albuterol Nebulized 2.5 Mg/3 Ml INHALATION RT-QID PRN Shortness Of Breath Aspirin 325 mg 02/09/21 09:00 Aspirin 325 Mg Tab PO DAILY [facility] Atorvastatin Calcium 40 mg 02/08/21 21:00 Atorvastatin 40 Mg Tab PO HS [facility] Doxazosin Mesylate 4 mg 02/08/21 21:00 Doxazosin 4 Mg Tab PO BID [facility] Finasteride 5 mg 02/09/21 09:00 Finasteride 5 Mg Tab PO DAILY [facility] Isosorbide Mononitrate 30 mg 02/09/21 09:00 Isosorbide Mononitrate Er 30 Mg Tab.Er.24h PO DAILY [facility] Levothyroxine Sodium 224 mcg 02/09/21 06:30 Levothyroxine 112 Mcg Tab PO DAILY@0630 [facility] Loratadine 10 mg 02/08/21 11:05 Loratadine 10 Mg Tab PO DAILY PRN Allergy Symptoms Losartan Potassium 100 mg 02/08/21 21:00 Losartan 50 Mg Tab PO HS [facility] Metoprolol Tartrate 50 mg 02/08/21 21:00 Metoprolol Tartrate 50 Mg Tab PO BID [facility] Naloxone HCl 0.2 mg 02/08/21 10:19 Naloxone 0.4 Mg/Ml 1 Ml Vial IV Q2M PRN Opioid Reversal Nitroglycerin 0.4 mg 02/08/21 10:20 Nitroglycerin Sl Tabs 0.4 Mg Tab SUBLINGUAL Q5M PRN Chest Pain Pentoxifylline 400 mg 02/08/21 21:00 Pentoxifylline 400 Mg Tablet.Er PO BID [facility] Verapamil HCl 120 mg 02/08/21 21:00 Verapamil Sr 120 Mg Tablet.Er PO HS [facility] Verapamil HCl 240 mg 02/09/21 09:00 Verapamil Sr 120 Mg Tablet.Er PO DAILY [facility] Zolpidem Tartrate 5 mg 02/08/21 11:05 Zolpidem 5 Mg Tab PO HS PRN Insomnia Intake and Output 02/07/21 02/08/21 02/08/21 22:59 06:59 14:59 Other: Weight 101.151 kg Patient Weight 02/09/21 06:59 Weight 101.151 kg 02/08/21 08:15 02/08/21 08:15
--- NOTE | 2021-02-08 15:04 | P.HPIM ---
History of Present Illness H&P Date: 02/08/21 76 years old male with past medical history of hypertension hyperlipidemia type 2 diabetes uncontrolled, coronary artery disease, former tobacco use with history of PR 10 years ago was last admitted on 02/05 with chest pain. Patient underwent cardiac cath during that admission and was noted to have multivessel coronary artery disease. Cardiothoracic surgery was consulted who recommended CABG for the patient. Patient refused the procedure at that moment. He comes in with recurrent chest pain associated with elevated blood pressure. Patient woke up at 4 in the morning and noted to have a high blood pressure 190/80 he took his blood pressure medication earlier. By the time patient came to the ER his blood pressure improved. In the ER patient was noted to have a temp of 98 pulse 86 respiratory rate 16 blood pressure 133/66. He did complain of some discomfort in the left side of his chest denies any radiation of pain. He denies any shortness of breath or excessive sweating. EKG was obtained that suggested a sinus rhythm with a rate of 66 QRS 74 normal axis septal Q waves no acute ST changes. Chest x-ray showed some chronic patchy infiltrate. Labs are evaluated patient had a sodium 131 potassium 4.8 chloride 101 BUN 41 creatinine 1.97 stable glucose of 254 hemoglobin 11.3 hematocrit 32.8 WBC 7.9 platelet 181. Cardiac and cardiothoracic surgery was consulted. Review of system Constitutional: No fevers, chills and weight loss. HENT: Negative. Negative for hearing loss. Eyes: Negative. Respiratory: No cough, shortness of breath or hemoptysis. No sputum production and wheezing. Cardiovascular: Positive for chest pain, no palpitations, orthopnea, claudic ation and PND. No swelling of feet Gastrointestinal: Negative for nausea, vomiting and melena. Genitourinary: Negative for urgency and frequency. Musculoskeletal: Negative for myalgias and neck pain. Skin: Negative. Negative for itching and rash. Neurological: Negative for headaches. Psychiatric/Behavioral: Negative for depression Social history Patient is a former smoker quit at the age of 30 smoked for 10 years 1 to 2 pack a day. Denies any use of alcohol or marijuana. Family history mother had leukemia at the age of 78 Father had diabetes disease at the age of 70 Patient lives alone has a son with no medical problems Physical exam CONSTITUTIONAL: Patient appears comfortable in no apparent distress. NECK: No JVD or lymph node enlargement. HEET: Unremarkable, conjunctivae/corneas clear. Sclera anicteric. Oral cavity no lesions. RESPIRATORY: Clear to auscultation bilaterally. CARDIOVASCULAR: Regular rate and rhythm. GASTROINTESTINAL: soft, non tender, no organomegaly. Bowel sounds are positive. PSYCH: Denies any depression or anxiety. SKIN: Vesicular rash nonpainful involving the right breast encasing the axilla and the back NEUROLOGICAL: alert, oriented x 3, no focal deficits noted. Assessment and plan #1 acute chest pain likely cardiac. Rule out ACS. Cardiology and cardiothoracic surgery consulted. Troponin x3. EKG negative for T wave changes. #2 hypertensive urgency continue verapamil 120 mg at bedtime to 40 daily. Continue losartan 100 mg daily continue metoprolol 50 twice daily. Continue aspirin 325 mg p.o. daily #3 history of coronary artery disease with prior myocardial infarction treated medically recent cardiac cath concerning for possible need of coronary artery bypass. Continue aspirin continue Lipitor, continue metoprolol continue Imdur 4. Active shingles valacyclovir initiated 1000 twice daily 5. Hyperlipidemia continue Lipitor 40 mg daily 6. 2 diabetes uncontrolled on insulin pump continue here. 7. BPH continue Proscar and Cardura 8. Insomnia continue zolpidem 5 mg at bedtime #9 peripheral artery disease continue pentoxifylline 400 twice daily #10 DVT prophylaxis with heparin every 8 #11 GI prophylaxis with Pepcid 20 mg daily #12 CODE STATUS full code Past Medical History Past Medical History: Coronary Artery Disease (CAD), Chest Pain / Angina, Diabetes Mellitus, Eye Disorder, Hearing Disorder / Deafness, Hyperlipidemia, Hypertension, Myocardial Infarction ([place]), Pneumonia, Prostate Disorder, Renal Disease, Thyroid Disorder Additional Past Medical History / Comment(s): History of peripheral neuropathy. Last Myocardial Infarction Date:: unk History of Any Multi-Drug Resistant Organisms: None Reported Past Surgical History: Tonsillectomy Additional Past Surgical History / Comment(s): Bilateral carpal tunnel surgery; bilateral cataracts Past Anesthesia/Blood Transfusion Reactions: No Reported Reaction Past Psychological History: No Psychological Hx Reported Smoking Status: Former smoker Past Alcohol Use History: None Reported Past Drug Use History: None Reported - Past Family History Father Family Medical History: Diabetes Mellitus, Myocardial Infarction ([place]), Renal Disease Mother Family Medical History: Cancer, Hypertension Additional Family Medical History / Comment(s): Leukemia Medications and Allergies Home Medications Medication Instructions Recorded Confirmed Type Albuterol Inhaler [Ventolin Hfa 2 puff INHALATION RT-QID PRN 02/04/21 02/08/21 History Inhaler] Ammonium Lactate Lotion 1 applic TOPICAL DAILY PRN 02/04/21 02/08/21 History [Lac-Hydrin 12% Lotion] Aspirin EC [Ecotrin] 325 mg PO DAILY 02/04/21 02/08/21 History Atorvastatin [Lipitor] 40 mg PO HS 02/04/21 02/08/21 History Cetirizine HCl [Zyrtec] 10 mg PO DAILY PRN 02/04/21 02/08/21 History Doxazosin [Cardura] 4 mg PO BID 02/04/21 02/08/21 History Econazole 1% Cream [Spectazole] 1 applic TOPICAL DAILY PRN 02/04/21 02/08/21 History Finasteride [Proscar] 5 mg PO DAILY 02/04/21 02/08/21 History INSULIN LISPRO (For Pump) [humaLOG 0.01 units SQ-PUMP CONTINUOUS 02/04/21 02/08/21 History (For Pump)] Isosorbide Mononitrate ER [Imdur] 30 mg PO DAILY 02/04/21 02/08/21 History Levothyroxine Sodium [Synthroid] 224 mcg PO DAILY 02/04/21 02/08/21 History Losartan Potassium 100 mg PO HS 02/04/21 02/08/21 History Metoprolol Tartrate [Lopressor] 50 mg PO BID 02/04/21 02/08/21 History Pentoxifylline 400 mg PO BID 02/04/21 02/08/21 History Verapamil HCl [Verapamil ER] 120 mg PO HS 02/04/21 02/08/21 History Verapamil HCl [Verapamil ER] 240 mg PO DAILY 02/04/21 02/08/21 History Zolpidem [Ambien] 5 mg PO HS PRN 02/04/21 02/08/21 History Allergies Allergy/AdvReac Type Severity Reaction Status Date / Time amlodipine [From Lotrel] AdvReac Cough Verified 02/08/21 09:27 benazepril [From Lotrel] AdvReac Cough Verified 02/08/21 09:27 cortisone AdvReac elevates Verified 02/08/21 09:27 blood sugar Physical Exam Vitals: Vital Signs Temp Pulse Pulse Resp BP BP Pulse Ox 02/08/21 12:00 97.8 F 65 16 152/70 99 02/08/21 09:30 61 17 121/59 95 02/08/21 09:00 62 17 118/58 96 02/08/21 08:30 61 18 119/61 94 L 02/08/21 08:19 64 17 97 02/08/21 08:06 98.0 F 86 16 133/66 96 Intake and Output 02/07/21 02/08/21 02/08/21 22:59 06:59 14:59 Other: Weight 101.151 kg Results CBC & Chem 7: 02/08/21 08:15 02/08/21 08:15 Labs: Abnormal Lab Results - Last 24 Hours (Table) 02/08/21 02/08/21 02/08/21 Range/Units 08:15 08:15 12:02 RBC 3.57 L (4.30-5.90) m/uL Hgb 11.3 L (13.0-17.5) gm/dL Hct 32.8 L (39.0-53.0) % Lymphocytes # 0.7 L (1.0-4.8) k/uL Sodium 131 L (137-145) mmol/L Carbon Dioxide 21 L (22-30) mmol/L BUN 41 H (9-20) mg/dL Creatinine 1.97 H (0.66-1.25) mg/dL Glucose 254 H (74-99) mg/dL POC Glucose (mg/dL) 142 H (75-99) mg/dL ALT 56 H (4-49) U/L Total Protein 5.8 L (6.3-8.2) g/dL Albumin 3.4 L (3.5-5.0) g/dL Thrombosis Risk Factor Assmnt - Choose All That Apply Any of the Below Risk Factors Present?: Yes Each Factor Represents 1 point: Obesity (BMI >25) Other Risk Factors: Yes Each Risk Factor Represents 3 Points: Age 75 years or older Thrombosis Risk Factor Assessment Total Risk Factor Score: 4 Thrombosis Risk Factor Assessment Level: Moderate Risk
--- NOTE | 2021-02-08 15:18 | P.GSCN ---
History of Present Illness Consult date: 02/08/21 Reason for Consult: Coronary artery disease Requesting physician: Fuad Ocampo History of present illness: This is a 76-year-old gentleman who follows with Dr. Thu Dhaliwal for his primary care service on an outpatient basis. He also follows with Dr. Bryan for his cardiac care. He has a past medical history for previous coronary artery disease with prior myocardial infarction treated medically, hypertension, hyperlipidemia, type 1 diabetes mellitus with insulin pump and managed by Dr. Mateo Ho, hypothyroid, stage III chronic kidney disease, peripheral neuropathy, BPH, remote history of pneumonia, remote history of tobacco dependence, hard of hearing, obesity, and family history of heart disease. He presented to the emergency department this morning with complaints of high blood pressure of 195/85 and chest pressure. He had a recent hospital admission and was discharged this past Thursday. During his last hospitalization he underwent a nuclear [employer] Lexiscan Cardiolite stress test on 02/04/2021 which demonstrated stress-induced ischemic change along the inferior wall, mild dyskinesia distal inferior wall and normal ejection fraction of 51%.. For further evaluation the patient underwent a cardiac catheterization which demonstrated a 50-60% stenosis to his proximal left anterior descending coronary artery, a 70% stenosis to his distal left anterior descending coronary artery, and 80-90% stenosis to his first diagonal coronary artery, a 60-70% stenosis to his circumflex coronary artery, a 60-70% stenosis to his distal right coronary artery and a 95% stenosis to his PLV coronary artery. The patient also underwent a transthoracic 2-D echocardiogram with the report unavailable at this time. On his last admission Dr. Tai Rosario from cardiothoracic surgery was consulted for further evaluation and treatment recommendations including myocardial revascularization surgery. At that time the patient wished to be treated with maximal medical therapy and was subsequently discharged home on 02/06/2021. Today he denies any complaints of fever, chills, peripheral edema, orthopnea, dizziness, syncope, shortness of breath or headache. His initial laboratory results today showed a WBC count of 7.9, hemoglobin 11.3, platelets 181, sodium 131, BUN 41, creatinine 1.97, glucose 254, magnesium 1.7, ALT 56 and troponin less than 0.012. A 12-lead EKG was completed which shows sinus rhythm with premature atrial complexes heart rate 66 BPM. Due to the patient's known history of coronary artery disease, and his presenting symptoms a consult was placed to Dr. Richmond Watts from cardiothoracic surgery for reevaluation for myocardial revascularization surgery as the patient is agreeable to proceed with the surgical option. Review of Systems A 14 point review of systems was completed and was negative except as mentioned in the HPI. Past Medical History Past Medical History: Coronary Artery Disease (CAD), Chest Pain / Angina, Diabetes Mellitus (Type 1 diabetes mellitus with insulin pump), Eye Disorder (History of angle closure glaucoma), Hearing Disorder / Deafness, Hyperlipidemia, Hypertension, Myocardial Infarction (LA), Pneumonia, Prostate Disorder, Renal Disease (Stage III kidney disease), Thyroid Disorder Additional Past Medical History / Comment(s): History of peripheral neuropathy. History of Any Multi-Drug Resistant Organisms: None Reported Past Surgical History: Tonsillectomy Additional Past Surgical History / Comment(s): Bilateral carpal tunnel surgery; bilateral cataracts Past Anesthesia/Blood Transfusion Reactions: No Reported Reaction Past Psychological History: No Psychological Hx Reported Smoking Status: Former smoker (Quit smoking over 40 years ago) Past Alcohol Use History: None Reported Past Drug Use History: None Reported - Past Family History Father Family Medical History: Diabetes Mellitus, Myocardial Infarction (LA), Renal Disease Mother Family Medical History: Cancer, Hypertension Additional Family Medical History / Comment(s): Leukemia Medications and Allergies Home Medications Medication Instructions Recorded Confirmed Type Albuterol Inhaler [Ventolin Hfa 2 puff INHALATION RT-QID PRN 02/04/21 02/08/21 History Inhaler] Ammonium Lactate Lotion 1 applic TOPICAL DAILY PRN 02/04/21 02/08/21 History [Lac-Hydrin 12% Lotion] Aspirin EC [Ecotrin] 325 mg PO DAILY 02/04/21 02/08/21 History Atorvastatin [Lipitor] 40 mg PO HS 02/04/21 02/08/21 History Cetirizine HCl [Zyrtec] 10 mg PO DAILY PRN 02/04/21 02/08/21 History Doxazosin [Cardura] 4 mg PO BID 02/04/21 02/08/21 History Econazole 1% Cream [Spectazole] 1 applic TOPICAL DAILY PRN 02/04/21 02/08/21 History Finasteride [Proscar] 5 mg PO DAILY 02/04/21 02/08/21 History INSULIN LISPRO (For Pump) [humaLOG 0.01 units SQ-PUMP CONTINUOUS 02/04/21 02/08/21 History (For Pump)] Isosorbide Mononitrate ER [Imdur] 30 mg PO DAILY 02/04/21 02/08/21 History Levothyroxine Sodium [Synthroid] 224 mcg PO DAILY 02/04/21 02/08/21 History Losartan Potassium 100 mg PO HS 02/04/21 02/08/21 History Metoprolol Tartrate [Lopressor] 50 mg PO BID 02/04/21 02/08/21 History Pentoxifylline 400 mg PO BID 02/04/21 02/08/21 History Verapamil HCl [Verapamil ER] 120 mg PO HS 02/04/21 02/08/21 History Verapamil HCl [Verapamil ER] 240 mg PO DAILY 02/04/21 02/08/21 History Zolpidem [Ambien] 5 mg PO HS PRN 02/04/21 02/08/21 History Allergies Allergy/AdvReac Type Severity Reaction Status Date / Time amlodipine [From Lotrel] AdvReac Cough Verified 02/08/21 09:27 benazepril [From Lotrel] AdvReac Cough Verified 02/08/21 09:27 cortisone AdvReac elevates Verified 02/08/21 09:27 blood sugar Surgical - Exam Vital Signs Temp Pulse Resp BP Pulse Ox 98.0 F 86 16 133/66 96 02/08/21 08:06 02/08/21 08:06 02/08/21 08:06 02/08/21 08:06 02/08/21 08:06 CONSTITUTIONAL: Sitting up to the bedside chair on the cardiac stepdown unit, appears comfortable, cooperative, no apparent acute distress. HEENT: Neck is supple, no JVD, no lymphadenopathy. RESPIRATORY: Lungs sounds essentially clear throughout. Respirations are symmetrical and nonlabored. Currently on room air with oxygen saturations 99%. CARDIOVASCULAR: Regular rhythm and rate. S1 and S2 present, negative for S3, g allop or murmur. No edema present. Peripheral pulses palpable. GASTROINTESTINAL: Abdomen soft, nontender, nondistended. Active bowel sounds present 4 quadrants. No guarding or rigidity. No organomegaly appreciated. GENITOURINARY: Voiding clear yellow urine. INTEGUMENTARY: Skin is warm and dry with no evidence of clubbing or cyanosis. NEUROLOGIC: Cranial nerves II through XII intact. No focal deficits. MUSKULOSKELETAL: Able to move all extremities, strength equal bilaterally. PSYCHIATRIC: Alert and oriented to person place and time, appropriate affect, intact judgment and insight. Results - Labs 02/08/21 08:15 02/08/21 08:15 Abnormal Lab Results - Last 24 Hours (Table) 02/08/21 02/08/21 02/08/21 Range/Units 08:15 08:15 12:02 RBC 3.57 L (4.30-5.90) m/uL Hgb 11.3 L (13.0-17.5) gm/dL Hct 32.8 L (39.0-53.0) % Lymphocytes # 0.7 L (1.0-4.8) k/uL Sodium 131 L (137-145) mmol/L Carbon Dioxide 21 L (22-30) mmol/L BUN 41 H (9-20) mg/dL Creatinine 1.97 H (0.66-1.25) mg/dL Glucose 254 H (74-99) mg/dL POC Glucose (mg/dL) 142 H (75-99) mg/dL ALT 56 H (4-49) U/L Total Protein 5.8 L (6.3-8.2) g/dL Albumin 3.4 L (3.5-5.0) g/dL Diabetes panel 02/08/21 Range/Units 08:15 Sodium 131 L (137-145) mmol/L Potassium 4.8 (3.5-5.1) mmol/L Chloride 101 (98-107) mmol/L Carbon Dioxide 21 L (22-30) mmol/L BUN 41 H (9-20) mg/dL Creatinine 1.97 H (0.66-1.25) mg/dL Glucose 254 H (74-99) mg/dL Calcium 9.1 (8.4-10.2) mg/dL AST 57 (17-59) U/L ALT 56 H (4-49) U/L Alkaline Phosphatase 87 (38-126) U/L Total Protein 5.8 L (6.3-8.2) g/dL Albumin 3.4 L (3.5-5.0) g/dL Calcium panel 02/08/21 Range/Units 08:15 Calcium 9.1 (8.4-10.2) mg/dL Albumin 3.4 L (3.5-5.0) g/dL Pituitary panel 02/08/21 Range/Units 08:15 Sodium 131 L (137-145) mmol/L Potassium 4.8 (3.5-5.1) mmol/L Chloride 101 (98-107) mmol/L Carbon Dioxide 21 L (22-30) mmol/L BUN 41 H (9-20) mg/dL Creatinine 1.97 H (0.66-1.25) mg/dL Glucose 254 H (74-99) mg/dL Calcium 9.1 (8.4-10.2) mg/dL Adrenal panel 02/08/21 Range/Units 08:15 Sodium 131 L (137-145) mmol/L Potassium 4.8 (3.5-5.1) mmol/L Chloride 101 (98-107) mmol/L Carbon Dioxide 21 L (22-30) mmol/L BUN 41 H (9-20) mg/dL Creatinine 1.97 H (0.66-1.25) mg/dL Glucose 254 H (74-99) mg/dL Calcium 9.1 (8.4-10.2) mg/dL Total Bilirubin 0.3 (0.2-1.3) mg/dL AST 57 (17-59) U/L ALT 56 H (4-49) U/L Alkaline Phosphatase 87 (38-126) U/L Total Protein 5.8 L (6.3-8.2) g/dL Albumin 3.4 L (3.5-5.0) g/dL - Imaging EKG: image reviewed Assessment and Plan Assessment: 1. Coronary artery disease with prior myocardial infarction treated medically 2. Hypertension 3. Hyperlipidemia, treated 4. Diabetes mellitus type 1, Insulin-dependent with insulin pump 5. Hypothyroid 6. Stage III chronic kidney disease 7. Neuropathy 8. BPH 9. Remote history of pneumonia 10. Previous tobacco dependence 11. Family history of heart disease 12. Obesity 13. Hard of hearing Plan: The patient was seen and examined at his bedside on the cardiac stepdown unit. Discharge diagnostics were reviewed. The patient was seen in consultation by Dr. Richmond Watts at his bedside. Dr. Watts spoke the patient and family members present at his bedside. Risks and benefits of myocardial revascularization surgery were discussed with the patient by Dr. Watts and knowing and understanding these risks the patient wished to proceed with the surgical option. The patient may want to be transferred to [facility] for the surgery, surgical date and time pending. Preoperative testing has been completed, preoperative teaching has been reinforced with the patient. Continue to optimize medical management with aspirin, statin and beta royer. Medical management and other comorbidities per primary care service. Further recommendations to follow based on patient's clinical course. His STS risk score has been calculated in discussed with the patient. A 5 m walk test was completed by cardiac rehab on 02/05/2021 with time 1: 4.19 seconds, time 2: 3.37 seconds, time 3: 4.12 seconds. Thank you for this consult and we look forward to working with you in the care of this patient.
[2021-02-08] MEDS ORDERED: MD COMMUNICATION TO PHARMACY 1 EACH MISC PO ONE ×3 (16:16)
[2021-02-08 17:07] LABS: Glucose,Whole Blood 144 mg/dL (75-99)
--- NOTE | 2021-02-08 18:39 | XR ---
EXAMINATION TYPE: XR chest 2V DATE OF EXAM: 02/08/2021 COMPARISON: 02/08/2021 HISTORY: Preop TECHNIQUE: 2 views FINDINGS: There is coarsening of the interstitial markings in the lower lung nolasco. Heart size is no rmal. There are no hilar masses. Mediastinum is normal. There is no heart failure. IMPRESSION: Coarse markings in the lower lung nolasco without change compared to exam this morning. No pulmonary consolidation. Minimal subsegmental atelectasis left lung base.
[2021-02-08] MEDS ORDERED: INSPUCOR MISCELLANE PRN (19:12)
[2021-02-08] MEDS ORDERED: INSULIN ASPART (NovoLOG) 100 UNIT/ML VIAL SQ PRN (19:12)
[2021-02-08] MEDS ORDERED: INSULIN PUMP BASAL RATES 1 EACH MISC MISCELLANE PRN (19:12)
[2021-02-08] MEDS: DOXAZOSIN 4 MG TAB PO SCH (20:02)
[2021-02-08] MEDS: METOPROLOL TARTRATE 50 MG TAB PO SCH (20:02)
[2021-02-08] MEDS: ATORVASTATIN 40 MG TAB PO SCH (20:02)
[2021-02-08 20:46] LABS: Glucose,Whole Blood 162 mg/dL (75-99)
[2021-02-08] MEDS ORDERED: LOSARTAN 50 MG TAB PO SCH (21:00)
[2021-02-08] MEDS ORDERED: MUPIROCIN 2% OINT 22 GM TUBE NASAL SCH (21:00)
[2021-02-08] MEDS ORDERED: PENTOXIFYLLINE 400 MG TABLET.ER PO SCH (21:00)
[2021-02-08] MEDS ORDERED: VERAPAMIL SR 120 MG TABLET.ER PO SCH (21:00)
[2021-02-08] MEDS: INSULIN PUMP MEAL BOLUS 1 UNIT MISC MISCELLANE SCH ×2 (21:40→21:41)
[2021-02-08] MEDS: valACYclovir HCL 1,000 MG TABLET PO SCH (21:42)
[2021-02-08] MEDS: Insulin Aspart (For Pump) 100 UNIT/ML VIAL SQ-PUMP SCH (21:42)
[2021-02-08] MEDS: ALPRAZolam 0.25 MG TAB PO PRN (21:46)
[2021-02-08 23:30] LABS: Appearance,Urine Clear (Clear); Bilirubin,Urine Negative (Negative); Blood,Urine Negative (Negative); Color,Urine Light Yellow; Glucose,Urine (UA) Negative (Negative); Ketones,Urine Negative (Negative); Leukocyte Esterase,Urine Negative (Negative); Nitrite,Urine Negative (Negative); PH, Urine 5.5 (5.0-8.0); Protein,Urine Negative (Negative); Specific Gravity,Urine 1.005 (1.001-1.035); Urobilinogen,Urine <2.0 mg/dL (<2.0)
[2021-02-09 06:20] LABS: Glucose,Whole Blood 94 mg/dL (75-99)
[2021-02-09] MEDS: LEVOTHYROXINE 112 MCG TAB PO SCH (06:45)
[2021-02-09] MEDS: ASPIRIN 325 MG TAB PO SCH (08:57)
[2021-02-09] MEDS: METOPROLOL TARTRATE 50 MG TAB PO SCH ×2 (08:57→19:59)
[2021-02-09] MEDS: DOXAZOSIN 4 MG TAB PO SCH ×2 (08:57→19:58)
[2021-02-09] MEDS: Insulin Aspart (For Pump) 100 UNIT/ML VIAL SQ-PUMP SCH ×4 (08:57→19:59)
[2021-02-09] MEDS: valACYclovir HCL 1,000 MG TABLET PO SCH ×3 (08:57→20:55)
[2021-02-09] MEDS: FINASTERIDE 5 MG TAB PO SCH (08:57)
[2021-02-09] MEDS: ISOSORBIDE MONONITRATE ER 30 MG TAB.ER.24H PO SCH (08:57)
[2021-02-09] MEDS ORDERED: VERAPAMIL SR 120 MG TABLET.ER PO SCH (09:00)
[2021-02-09] MEDS ORDERED: NON FORMULARY DRUG (Aspirin Ec 325 MG Tablet.Dr) PO SCH (09:00)
--- NOTE | 2021-02-09 09:29 | P.PN ---
Subjective Progress Note Date: 02/09/21 Principal diagnosis: Coronary artery disease, possible shingles rash to his right upper chest and to his right upper back. Past medical history significant for previous coronary ar jez disease with prior myocardial infarction treated medically, hypertension, hyperlipidemia, type 1 diabetes mellitus with insulin pump and managed by Dr. Mateo Ho, hypothyroid, stage III chronic kidney disease, peripheral neuropathy, BPH, remote history of pneumonia, remote history of tobacco dependence, hard of hearing, obesity, and family history of heart disease. The patient was seen in follow-up today 02/09/2021 at his bedside on the cardiac stepdown unit. Currently sitting up to the bedside edge, eating his breakfast, as awake, alert and oriented 3 and is in no acute distress. Oxygen saturations are 95% on room air and he is achieving 3000 mL on his incentive spirometry. R emote telemetry showing normal sinus rhythm heart rate 65 BPM. There is a red raised rash on his right upper chest and right upper back and the patient feels that it may be a shingles rash. The patient is tentatively scheduled for myocardial revascularization surgery for 02/11/2021 with left internal mammary artery, endoscopic vein harvest, intraoperative STEFFANY and exclusion of his left atrial appendage to be performed by Dr. Tai Rosario. Preoperative teaching has been reinforced with the patient. He has been up ambulating in his room. No further complaints of chest pressure, pain or shortness of breath. Objective - Vital Signs Vital signs: Vital Signs Temp 97.4 F L 02/09/21 03:45 Pulse 65 02/09/21 03:45 Resp 16 02/09/21 03:45 BP 165/80 02/09/21 03:45 Pulse Ox 95 02/09/21 03:45 Intake & Output 02/08/21 02/09/21 02/09/21 18:59 06:59 18:59 Intake Total 358 Output Total 500 1550 Balance -142 -1550 Weight 101.151 kg 104.1 kg Intake: Oral 358 Output: Urine 500 1550 Other: Voiding Method Toilet - Exam CONSTITUTIONAL: Sitting up to the bedside edge on the cardiac stepdown unit, appears comfortable, cooperative, no apparent acute distress. HEENT: Neck is supple, no JVD, no lymphadenopathy. RESPIRATORY: Lungs sounds essentially clear throughout. Respirations are symmetrical and nonlabored. Currently on room air with oxygen saturations 95%. Able to achieve 3000 mL on his incentive spirometry. Strong cough. CARDIOVASCULAR: Regular rhythm and rate. S1 and S2 present, negative for S3, gallop or murmur. Palpable peripheral pulses bilaterally, no edema to his bilateral lower extremities. No calf pain or tenderness noted. Remote telemetry showing normal sinus tachycardia heart rate 100 BPM. GASTROINTESTINAL: Abdomen soft, nontender, nondistended. Active bowel sounds present 4 quadrants. Tolerating diet. No guarding or rigidity. GENITOURINARY: Continues to void. INTEGUMENTARY: Skin is warm and dry with no evidence of clubbing or cyanosis. Red raised rash with small fluid filled blisters to his right upper chest and right upper back NEUROLOGIC: Cranial nerves II through XII intact. No focal deficits. MUSKULOSKELETAL: Able to move all extremities, strength equal bilaterally. PSYCHIATRIC: Alert and oriented to person place and time, appropriate affect, intact judgment and insight. - Allied health notes Allied health notes reviewed: nursing - Labs CBC & Chem 7: 02/08/21 08:15 02/08/21 08:15 Labs: Abnormal Lab Results - Last 24 Hours (Table) 02/08/21 02/08/21 02/08/21 Range/Units 08:15 08:15 12:02 RBC 3.57 L (4.30-5.90) m/uL Hgb 11.3 L (13.0-17.5) gm/dL Hct 32.8 L (39.0-53.0) % Lymphocytes # 0.7 L (1.0-4.8) k/uL Sodium 131 L (137-145) mmol/L Carbon Dioxide 21 L (22-30) mmol/L BUN 41 H (9-20) mg/dL Creatinine 1.97 H (0.66-1.25) mg/dL Glucose 254 H (74-99) mg/dL POC Glucose (mg/dL) 142 H (75-99) mg/dL ALT 56 H (4-49) U/L Total Protein 5.8 L (6.3-8.2) g/dL Albumin 3.4 L (3.5-5.0) g/dL 02/08/21 02/08/21 Range/Units 17:05 20:44 RBC (4.30-5.90) m/uL Hgb (13.0-17.5) gm/dL Hct (39.0-53.0) % Lymphocytes # (1.0-4.8) k/uL Sodium (137-145) mmol/L Carbon Dioxide (22-30) mmol/L BUN (9-20) mg/dL Creatinine (0.66-1.25) mg/dL Glucose (74-99) mg/dL POC Glucose (mg/dL) 144 H 162 H (75-99) mg/dL ALT (4-49) U/L Total Protein (6.3-8.2) g/dL Albumin (3.5-5.0) g/dL - Imaging and Cardiology Chest x-ray: report reviewed, image reviewed Assessment and Plan Assessment: 1. Coronary artery disease with prior myocardial infarction treated medically 2. Hypertension 3. Hyperlipidemia, treated 4. Diabetes mellitus type 1, Insulin-dependent with insulin pump 5. Hypothyroid 6. Stage III chronic kidney disease 7. Neuropathy 8. BPH 9. Remote history of pneumonia 10. Previous tobacco dependence 11. Family history of heart disease 12. Obesity 13. Hard of hearing 14. Shingles rash to his right upper chest and right upper back Plan: 1. Continue to reinforce preoperative teaching for myocardial revascularization surgery. 2. The patient was tentatively scheduled for myocardial revascularization surgery with left internal mammary artery, endoscopic vein harvest, exclusion of left atrial appendage and intraoperative transesophageal echocardiogram for 02/11/2021 to be performed by Dr. Tai Rosario, although due to his shingles rash, medicine feels like the patient's surgery should be delayed at least 2-3 weeks until the shingles rash has healed. He will follow-up after discharge with Dr. Rosario in the office in 2 weeks. 3. Encourage use of his incentive spirometry 10 times every hour while awake. 4. Medical management and other comorbidities per primary care service. 5. His STS risk score was calculated and discussed with the patient and his family present at his bedside. 6. Continue to maximize medical management with aspirin, statin and beta royer. 7. More recommendations to follow based on patient's clinical course. Time with Patient: Greater than 30
--- NOTE | 2021-02-09 10:21 | P.PN ---
Subjective Progress Note Date: 02/09/21 76 years old male with past medical history of hypertension hyperlipidemia type 2 diabetes uncontrolled, coronary artery disease, former tobacco use with history of [place] 10 years ago was last admitted on 02/05 with chest pain. Patient underwent cardiac cath during that admission and was noted to hav e multivessel coronary artery disease. Cardiothoracic surgery was consulted who recommended CABG for the patient. Patient refused the procedure at that moment. He comes in with recurrent chest pain associated with elevated blood pressure. Patient woke up at 4 in the morning and noted to have a high blood pressure 190/80 he took his blood pressure medication earlier. By the time patient came to the ER his blood pressure improved. In the ER patient was noted to have a temp of 98 pulse 86 respiratory rate 16 blood pressure 133/66. He did complain of some discomfort in the left side of his chest denies any radiation of pain. He denies any shortness of breath or excessive sweating. EKG was obtained that suggested a sinus rhythm with a rate of 66 QRS 74 normal axis septal Q waves no acute ST changes. Chest x-ray showed some chronic patchy infiltrate. Labs are evaluated patient had a sodium 131 potassium 4.8 chloride 101 BUN 41 creatinine 1.97 stable glucose of 254 hemoglobin 11.3 hematocrit 32.8 WBC 7.9 platelet 181. Cardiac and cardiothoracic surgery was consulted. 02/09: Patient is found sitting up in a chair without any complaints. Patient has a rash to the right upper chest encompassing axilla and back. The rash is a vesicular and nonpainful. Due to the findings of shingles the surgery will be held for at least 2 weeks. Patient will be started on antiviral medication along with something for pain. Patient is agreeable with the plan of care. Discussed at length with the patient the importance of taking it easy when he has home until surgery is performed. No exertion. Patient verbalized understanding. More than likely patient will be sent home tomorrow on antiviral medications. Review of system Constitutional: No fevers, chills and weight loss. HENT: Negative. Negative for hearing loss. Eyes: Negative. Respiratory: No cough, shortness of breath or hemoptysis. No sputum production and wheezing. Cardiovascular: Positive for chest pain, no palpitations, orthopnea, claudication and PND. No swelling of feet Gastrointestinal: Negative for nausea, vomiting and melena. Genitourinary: Negative for urgency and frequency. Musculoskeletal: Negative for myalgias and neck pain. Skin: Negative. Negative for itching and rash. Neurological: Negative for headaches. Psychiatric/Behavioral: Negative for depression Physical exam CONSTITUTIONAL: Patient appears comfortable in no apparent distress. NECK: No JVD or lymph node enlargement. HEET: Unremarkable, conjunctivae/corneas clear. Sclera anicteric. Oral cavity no lesions. RESPIRATORY: Clear to auscultation bilaterally. CARDIOVASCULAR: Regular rate and rhythm. GASTROINTESTINAL: soft, non tender, no organomegaly. Bowel sounds are positive. PSYCH: Denies any depression or anxiety. SKIN: Vesicular rash nonpainful involving the right breast encasing the axilla and the back NEUROLOGICAL: alert, oriented x 3, no focal deficits noted. Assessment and plan 1. acute chest pain likely cardiac. Rule out ACS. Cardiology and cardiothoracic surgery consulted. Plan for CABG. Surgery on hold for at least 2 weeks due to dx of shingles. 2. hypertensive urgency continue verapamil 120 mg at bedtime to 40 daily. Continue losartan 100 mg daily continue metoprolol 50 twice daily. Continue aspirin 325 mg p.o. daily 3. history of coronary artery disease with prior myocardial infarction treated medically recent cardiac cath concerning for possible need of coronary artery bypass. Continue aspirin continue Lipitor, continue metoprolol continue Imdur 4. Active shingles valacyclovir initiated 1000 tid, gabapentin 100 mg bid 5. Hyperlipidemia continue Lipitor 40 mg daily 6. diabetes uncontrolled on insulin pump continue here. 7. BPH continue Proscar and Cardura 8. Insomnia continue zolpidem 5 mg at bedtime 9. peripheral artery disease continue pentoxifylline 400 twice daily 10. DVT prophylaxis: Heparin subq every 8 hours 11. GI prophylaxis: Pepcid 20 mg daily CODE STATUS: full code Discharge Plan: poss home tomorrow Impression and plan of care have been directed as dictated by the signing physician. Caitlyn Maldonado nurse practitioner acting as scribe for signing physician. Objective - Vital Signs Vital signs: Vital Signs Temp 97.4 F L 02/09/21 03:45 Pulse 65 02/09/21 03:45 Resp 16 02/09/21 03:45 BP 165/80 02/09/21 03:45 Pulse Ox 95 02/09/21 03:45 Intake & Output 02/08/21 02/09/2121 18:59 06:59 18:59 Intake Total 358 Output Total 500 1550 Balance -142 -1550 Weight 101.151 kg 104.1 kg Intake: Oral 358 Output: Urine 500 1550 Other: Voiding Method Toilet - Labs CBC & Chem 7: 02/08/21 08:15 02/08/21 08:15 Labs: Abnormal Lab Results - Last 24 Hours (Table) 02/08/21 02/08/21 02/08/21 Range/Units 12:02 17:05 20:44 POC Glucose (mg/dL) 142 H 144 H 162 H (75-99) mg/dL
--- NOTE | 2021-02-09 10:24 | P.DS ---
Providers Date of admission: 02/08/21 10:19 Attending physician: Mack Orozco MD Consults: 02/08/21 10:19 Consult Physician Urgent Consulting Provider: Tai Rosario Consult Reason/Comments: Continued chest pressure Do you want consulting provider notified?: Yes 02/08/21 10:20 Consult Physician Urgent Consulting Provider: Leona Bryan Consult Reason/Comments: c pressure Do you want consulting provider notified?: Yes 02/08/21 16:16 Consult Physician Routine Consulting Provider: Renard Curtis Consult Reason/Comments: pre op CABG Do you want consulting provider notified?: Yes, Notify in am Consult to Anesthesia Routine Consulting Provider: Anesthesia,Services Consult Reason/Comments: Cardiac Surgery Pre-Op Primary care physician: Thu Dhaliwal [facility] Course: HISTORY OF PRESENT ILLNESS This is a 59-year-old female patient of Phan Yeager NP, with past medical history of non-ST elevated myocardial infarction with heart catheterization and stent placement in 2019, COPD with remote history of tobacco use, hypertension, hyperlipidemia. Patient was initially seen at [facility] and underwent heart catheterization there that revealed severe disease involving the mid right coronary artery which seems to be an in-stent restenosis. Patient was transferred to [facility] and is status post stenting of the mid right coronary artery. Patient apparently had chest pain following the procedure and is on nitroglycerin drip and this has subsequently resolved. 02/09: Patient is found sitting up in bed with no complaint or concerns. He is a nxious to go home. Patient has been ambulatory within the room and halls without any difficulties. Patient puncture site is clean and dry without any drainage noted. Positive ecchymosis. Discussed with patient smoking cessation offered nicotine patch which patient declined. Discharge diagnosis: 1. Non-ST elevated myocardial infarction status post stent RCA. 2. COPD. 3. Hypertension. 4. Hyperlipidemia. 5. Nicotine dependence DISCHARGE Disposition Home with self care Impression and plan of care have been directed as dictated by the signing physician. Caitlyn Maldonado nurse practitioner acting as scribe for signing physician. Plan - Discharge Summary Discharge Rx Participant: No New Discharge Prescriptions: No Action Albuterol Inhaler [Ventolin Hfa Inhaler] 2 puff INHALATION RT-QID PRN PRN Reason: Shortness Of Breath Atorvastatin [Lipitor] 40 mg PO HS Doxazosin [Cardura] 4 mg PO BID Finasteride [Proscar] 5 mg PO DAILY Isosorbide Mononitrate ER [Imdur] 30 mg PO DAILY Levothyroxine Sodium [Synthroid] 224 mcg PO DAILY Losartan Potassium 100 mg PO HS Metoprolol Tartrate [Lopressor] 50 mg PO BID Pentoxifylline 400 mg PO BID Econazole 1% Cream [Spectazole] 1 applic TOPICAL DAILY PRN PRN Reason: Skin Irritation Ammonium Lactate Lotion [Lac-Hydrin 12% Lotion] 1 applic TOPICAL DAILY PRN PRN Reason: Dry Skin Aspirin EC [Ecotrin] 325 mg PO DAILY Cetirizine HCl [Zyrtec] 10 mg PO DAILY PRN PRN Reason: Allergy Symptoms INSULIN LISPRO (For Pump) [humaLOG (For Pump)] 0.01 units SQ-PUMP CONTINUOUS Verapamil HCl [Verapamil ER] 120 mg PO HS Verapamil HCl [Verapamil ER] 240 mg PO DAILY Zolpidem [Ambien] 5 mg PO HS PRN PRN Reason: Insomnia Discharge Medication List Albuterol Inhaler [Ventolin Hfa Inhaler] 2 puff INHALATION RT-QID PRN 02/04/21 [History] Ammonium Lactate Lotion [Lac-Hydrin 12% Lotion] 1 applic TOPICAL DAILY PRN 02/04/21 [History] Aspirin EC [Ecotrin] 325 mg PO DAILY 02/04/21 [History] Atorvastatin [Lipitor] 40 mg PO HS 02/04/21 [History] Cetirizine HCl [Zyrtec] 10 mg PO DAILY PRN 02/04/21 [History] Doxazosin [Cardura] 4 mg PO BID 02/04/21 [History] Econazole 1% Cream [Spectazole] 1 applic TOPICAL DAILY PRN 02/04/21 [History] Finasteride [Proscar] 5 mg PO DAILY 02/04/21 [History] INSULIN LISPRO (For Pump) [humaLOG (For Pump)] 0.01 units SQ-PUMP CONTINUOUS 02/04/21 [History] Isosorbide Mononitrate ER [Imdur] 30 mg PO DAILY 02/04/21 [History] Levothyroxine Sodium [Synthroid] 224 mcg PO DAILY 02/04/21 [History] Losartan Potassium 100 mg PO HS 02/04/21 [History] Metoprolol Tartrate [Lopressor] 50 mg PO BID 02/04/21 [History] Pentoxifylline 400 mg PO BID 02/04/21 [History] Verapamil HCl [Verapamil ER] 120 mg PO HS 02/04/21 [History] Verapamil HCl [Verapamil ER] 240 mg PO DAILY 02/04/21 [History] Zolpidem [Ambien] 5 mg PO HS PRN 02/04/21 [History] Follow up Appointment(s)/Referral(s): Thu Dhaliwal DO [Primary Care Provider] - 1-2 days Tai Rosario MD [STAFF PHYSICIAN] - 2 Weeks
[2021-02-09 11:56] LABS: Glucose,Whole Blood 158 mg/dL (75-99)
[2021-02-09] MEDS: GABAPENTIN 100 MG CAP PO SCH ×2 (12:28→19:58)
--- NOTE | 2021-02-09 13:11 | P.PN ---
Subjective Progress Note Date: 02/09/21 HISTORY OF PRESENT ILLNESS: This is a 76-year-old male with a past medical history significant for hypertension, hyperlipidemia, diabetes mellitus, coronary artery disease, former tobacco use. Patient states he had a heart attack about 10 years ago. He reports having a cardiac cath at that time and did not require stenting. Patient follows in the office with Dr. Bryan. We have been asked to see the patient in consultation for chest pain. Patient states he woke up at night feeling anxious and that his blood pressure was high. He took his blood pressure and it was 190s /80s. He also has been having intermittent chest pain. Patient recent admitted 02/04/21 with chest pain. Patient underwent Le scan stress test revealed stress induced ischemic changes along the inferior wall. Mild dyskinesia distal inferior wall. EF 51%. Cardiac catheterization was recommended at that time. Echocardiogram revealed left ventricular systolic function is normal with EF of 55-60%, LA is mildly dilated, mild to moderate aortic valve sclerosis, trace mitral regurgitation, trace tricuspid regurgitation. Patient underwent cardiac catheter patient Dr. Bryan which revealed heavily calcified coronary system including left main. LV calcified vessel with a long 50-60% lesion in volving the proximal LAD. Appears to be eccentric 80-90% stenosis at the origin of the first diagonal. Also 70% lesion in the distal LAD. 60-70% lesion in the left circumflex. 60-70% in the distal RCA. 95% stenosis involving the origin of the PLV branch. At that time coronary artery bypass graft was recommended. At the time patient refused to undergo CABG. DIAGNOSTICS: EKG reveals sinus rhythm with premature atrial complexes, heart rate 66, nonspecific STT wave abnormalities. Laboratory data reviewed WBC 7.9, hemoglobin 11.3, platelets 181, sodium 131, potassium 4.8, BUN 41, serum creatinine 1.9, troponin negative 2, magnesium 1.7, COVID-19 negative Chest x-ray reveals mild patchy opacities in mid and lower lungs. 02/09/2021 Patient examined this morning the bedside. Patient was scheduled to undergo CABG on Thursday. However patient was found to have shingles of his right chest today. The surgery has been postponed for 2-3 weeks. He denies chest pain or pressure. He denies shortness of breath. PHYSICAL EXAM: VITAL SIGNS: Reviewed. GENERAL: Well-developed in no acute distress. HEENT: Head is normocephalic. Pupils are equal, round. Sclerae anicteric. Mucous membranes of the mouth are moist. Neck supple. No JVD or thyromegaly LUNGS: Respirations even and unlabored. Lungs essentially clear to auscultation bilaterally. HEART: Regular rate and rhythm. S1 and S2 heard. No murmur ABDOMEN: Soft. Nondistended. Nontender. EXTREMITIES: Normal range of motion. No clubbing or cyanosis. Peripheral pulses intact. No lower extremity edema NEUROLOGIC: Awake and alert. Oriented x 3. ASSESSMENT: Coronary artery disease with prior myocardial infarction treated medically Chest pain Hypertension Hyperlipidemia Type 2 Diabetes History of NSTEMI, 2010, not requiring PCI Obesity, BMI 31.0 Shingles PLAN: Continue current cardiac medications Patient may be discharged home today from a cardiac standpoint Nurse practitioner note has been reviewed by physician. Signing provider agrees with the documented findings, assessment, and plan of care. Objective - Vital Signs Vital signs: Vital Signs Temp 97.5 F L 02/09/21 08:00 Pulse 67 02/09/21 12:00 Resp 20 02/09/21 12:00 BP 119/73 02/09/21 12:00 Pulse Ox 97 02/09/21 12:00 Intake & Output 02/08/21 02/09/21 02/09/21 18:59 06:59 18:59 Intake Total 358 240 Output Total 500 1550 100 Balance -142 -1550 140 Weight 101.151 kg 104.1 kg Intake: Oral 358 240 Output: Urine 500 1550 100 Other: Voiding Method Toilet - Labs CBC & Chem 7: 02/08/21 08:15 02/08/21 08:15 Labs: Abnormal Lab Results - Last 24 Hours (Table) 02/08/21 02/08/21 02/09/21 Range/Units 17:05 20:44 11:54 POC Glucose (mg/dL) 144 H 162 H 158 H (75-99) mg/dL
--- NOTE | 2021-02-09 14:12 | P.CNPUL ---
History of Present Illness Consult date: 02/09/21 Requesting physician: Mack Orozco Reason for consult: other (Preoperative pulmonary evaluation.) Chief complaint: Elevated blood pressure and chest pain. History of present illness: This is a 76-year-old white male with history of multiple medical problems including coronary artery disease, previous [place], remote smoking history, [id number] smoking history, history of previous non-ST elevation myocardial infarction, type 2 diabetes, patient had a recent cardiac catheterization, and it showed significant coronary artery disease, CABG was recommended, and was supposed to be done on elective basis. Recently, the patient came down with acute varicella zoster dermatitis, and it seems to be involving multiple dermatomes on the right side of the chest and back. Hence surgery was delayed, and the patient came in yesterday mostly complaining of feeling pressure over the chest, and his blood pressure was as high as 190/80. Patient has been complaining of intermittent chest pain and pain is confusing whether this is related to his shingles or related to his underlying coronary artery disease. At any rate patient was evaluated by cardiology since admission, he was cleared to be discharged home today, and will have outpatient CABG in the next few weeks after his varicella-zoster infection resolved. His presentation at this time, did not seem to be a cardiac presentation. Pulmonary-fong, patient does not have COPD he had a [id number] smoking history, but no symptoms to suggest underlying COPD. Review of Systems CONSTITUTIONAL: Denies fever or chills. HEENT: Denies blurred vision, vision changes, or eye pain. Denies hemoptysis CARDIOVASCULAR: As noted in HPI. RESPIRATORY: Denies cough wheezing or shortness of breath. GASTROINTESTINAL: Denies abdominal pain. Denies nausea or vomiting. HEMATOLOGIC: Denies bleeding disorders. GENITOURINARY: Denies any blood in urine. 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 Last Myocardial Infarction Date:: unk History of Any Multi-Drug Resistant Organisms: None Reported Past Surgical History: Tonsillectomy Additional Past Surgical History / Comment(s): Bilateral carpal tunnel surgery; bilateral cataracts Past Anesthesia/Blood Transfusion Reactions: No Reported Reaction Past Psychological History: No Psychological Hx Reported Smoking Status: Former smoker (Quit smoking over 40 years ago) Past Alcohol Use History: None Reported Past Drug Use History: None Reported - Past Family History Father Family Medical History: Diabetes Mellitus, Myocardial Infarction ([place]), Renal Disease Mother Family Medical History: Cancer, Hypertension Additional Family Medical History / Comment(s): Leukemia Medications and Allergies Home Medications Medication Instructions Recorded Confirmed Type Albuterol Inhaler [Ventolin Hfa 2 puff INHALATION RT-QID PRN 02/04/21 02/08/21 History Inhaler] Ammonium Lactate Lotion 1 applic TOPICAL DAILY PRN 02/04/21 02/08/21 History [Lac-Hydrin 12% Lotion] Aspirin EC [Ecotrin] 325 mg PO DAILY 02/04/21 02/08/21 History Atorvastatin [Lipitor] 40 mg PO HS 02/04/21 02/08/21 History Cetirizine HCl [Zyrtec] 10 mg PO DAILY PRN 02/04/21 02/08/21 History Doxazosin [Cardura] 4 mg PO BID 02/04/21 02/08/21 History Econazole 1% Cream [Spectazole] 1 applic TOPICAL DAILY PRN 02/04/21 02/08/21 History Finasteride [Proscar] 5 mg PO DAILY 02/04/21 02/08/21 History INSULIN LISPRO (For Pump) [humaLOG 0.01 units SQ-PUMP CONTINUOUS 02/04/21 02/08/21 History (For Pump)] Isosorbide Mononitrate ER [Imdur] 30 mg PO DAILY 02/04/21 02/08/21 History Levothyroxine Sodium [Synthroid] 224 mcg PO DAILY 02/04/21 02/08/21 History Losartan Potassium 100 mg PO HS 02/04/21 02/08/21 History Metoprolol Tartrate [Lopressor] 50 mg PO BID 02/04/21 02/08/21 History Pentoxifylline 400 mg PO BID 02/04/21 02/08/21 History Verapamil HCl [Verapamil ER] 120 mg PO HS 02/04/21 02/08/21 History Verapamil HCl [Verapamil ER] 240 mg PO DAILY 02/04/21 02/08/21 History Zolpidem [Ambien] 5 mg PO HS PRN 02/04/21 02/08/21 History Allergies Allergy/AdvReac Type Severity Reaction Status Date / Time amlodipine [From Lotrel] AdvReac Cough Verified 02/08/21 09:27 benazepril [From Lotrel] AdvReac Cough Verified 02/08/21 09:27 cortisone AdvReac elevates Verified 02/08/21 09:27 blood sugar Physical Exam Vitals: Vital Signs Temp Pulse Resp BP Pulse Ox 02/09/21 12:00 67 20 119/73 97 02/09/21 08:00 97.5 F L 75 18 148/68 97 02/09/21 03:45 97.4 F L 65 16 165/80 95 02/09/21 00:00 98.0 F 70 18 117/56 96 02/08/21 20:00 98.2 F 80 18 189/91 96 02/08/21 16:56 98.0 F 75 16 166/72 96 Intake and Output 02/08/21 02/09/21 02/09/21 22:59 06:59 14:59 Intake Total 240 240 Output Total 500 1550 100 Balance -260 -1550 140 Intake: Oral 240 240 Output: Urine 500 1550 100 Other: Voiding Method Toilet Weight 104.1 kg CONSTITUTIONAL: Revealed a 76-year-old white male in no distress. On room air. NECK: No JVD or lymph node enlargement. HEET: Elaina, EOMI, nonicteric, no neck masses, no JVD, no stridor.. RESPIRATORY: Clear to auscultation bilaterally. CARDIOVASCULAR: Regular rate and rhythm. GASTROINTESTINAL: soft, non tender, no organomegaly. Bowel sounds are positive. PSYCH: Denies any depression or anxiety. SKIN: Vesicular rash nonpainful involving the right breast encasing the axilla and the back NEUROLOGICAL: alert, oriented x 3, no focal deficits noted. Psychiatric: Normal mood, affect and normal mental status examination. Results - Laboratory Findings CBC and BMP: 02/08/21 08:15 02/08/21 08:15 PT/INR, D-dimer PT 10.6 sec (9.0-12.0) 08/06/21 08:15 INR 1.0 (<1.2) 02/08/21 08:15 Abnormal lab findings: Abnormal Labs 02/08/21 02/08/21 02/08/21 08:15 08:15 12:02 RBC 3.57 L Hgb 11.3 L Hct 32.8 L Lymphocytes # 0.7 L Sodium 131 L Carbon Dioxide 21 L BUN 41 H Creatinine 1.97 H Glucose 254 H POC Glucose (mg/dL) 142 H ALT 56 H Total Protein 5.8 L Albumin 3.4 L 02/08/21 02/08/21 02/09/21 17:05 20:44 11:54 RBC Hgb Hct Lymphocytes # Sodium Carbon Dioxide BUN Creatinine Glucose POC Glucose (mg/dL) 144 H 162 H 158 H ALT Total Protein Albumin - Diagnostic Findings Chest x-ray: image reviewed (Minimal subsegmental atelectasis especially at the left lung base, no active disease.) Assessment and Plan Assessment: Impression: Acute chest pain, felt to be noncardiac in nature as per cardiology. Could very well be related to his shingles dermatitis History of underlying coronary artery disease. Patient will eventually require bicarbonate revascularization. History of peripheral vessel occlusive disease. Remote smoking history but no clear-cut evidence of COPD. Recommendation: Agree with discharging the patient home if agreeable with cardiology. Continue Valtrex for his shingles dermatitis. Pulmonary-fong, the patient is considered low operative risk, however would suggest surgery after his dermatitis heals and recovers. We will reevaluate the patient during his next admission for CABG. Time with Patient: Greater than 30
[2021-02-09] MEDS: INSULIN PUMP MEAL BOLUS 1 UNIT MISC MISCELLANE SCH ×3 (15:20→19:58)
[2021-02-09] MEDS ORDERED: MD COMMUNICATION TO PHARMACY 1 EACH MISC PO ONE ×2 (16:16)
[2021-02-09 16:54] LABS: Glucose,Whole Blood 191 mg/dL (75-99)
[2021-02-09 17:57] LABS: Chol/HDL Ratio 4.56; LDL Cholesterol,Calculated 71.4 mg/dL (0.0-131.0); VLDL Calculation 24.6 mg/dL (5.00-40.00)
[2021-02-09] MEDS: ATORVASTATIN 40 MG TAB PO SCH (19:58)
[2021-02-09] MEDS ORDERED: VERAPAMIL 40 MG TAB PO SCH (21:00)
[2021-02-09] MEDS ORDERED: LOSARTAN 50 MG TAB PO SCH (21:00)
[2021-02-09 21:04] LABS: Glucose,Whole Blood 159 mg/dL (75-99)
[2021-02-09] MEDS: ALPRAZolam 0.25 MG TAB PO PRN (22:05)
[2021-02-10] MEDS ORDERED: ACETAMINOPHEN TAB 325 MG TAB PO PRN (03:11)
[2021-02-10] MEDS: LEVOTHYROXINE 112 MCG TAB PO SCH (05:57)
[2021-02-10] MEDS: INSULIN PUMP MEAL BOLUS 1 UNIT MISC MISCELLANE SCH (05:59)
[2021-02-10] MEDS: ASPIRIN 325 MG TAB PO SCH (08:38)
[2021-02-10] MEDS: valACYclovir HCL 1,000 MG TABLET PO SCH (08:38)
[2021-02-10] MEDS: DOXAZOSIN 4 MG TAB PO SCH (08:39)
[2021-02-10] MEDS: ISOSORBIDE MONONITRATE ER 30 MG TAB.ER.24H PO SCH (08:39)
[2021-02-10] MEDS: METOPROLOL TARTRATE 50 MG TAB PO SCH (08:39)
[2021-02-10] MEDS: FINASTERIDE 5 MG TAB PO SCH (08:39)
[2021-02-10] MEDS: GABAPENTIN 100 MG CAP PO SCH (08:39)
[2021-02-10 08:47] VITALS: BP 136/62; PULSE 86; RESP 18; TEMP 96.8
[2021-02-10] MEDS ORDERED: VERAPAMIL 80 MG TAB PO SCH (09:00)
[2021-02-10] MEDS: Insulin Aspart (For Pump) 100 UNIT/ML VIAL SQ-PUMP SCH (09:39)
--- NOTE | 2021-02-10 10:33 | P.DS ---
Providers Date of admission: 02/08/21 10:19 Attending physician: Mack Orozco MD Consults: 02/08/21 10:19 Consult Physician Urgent Consulting Provider: Tai Rosario Consult Reason/Comments: Continued chest pressure Do you want consulting provider notified?: Yes 02/08/21 10:20 Consult Physician Urgent Consulting Provider: Leona Bryan Consult Reason/Comments: c pressure Do you want consulting provider notified?: Yes 02/08/21 16:16 Consult Physician Routine Consulting Provider: Renard Curtis Consult Reason/Comments: pre op CABG Do you want consulting provider notified?: Yes, Notify in am Consult to Anesthesia Routine Consulting Provider: Anesthesia,Services Consult Reason/Comments: Cardiac Surgery Pre-Op Primary care physician: Thu Dhaliwal [facility] Course: 76 years old male with past medical history of hypertension hyperlipidemia type 2 diabetes uncontrolled, coronary artery disease, former tobacco use with history of CA 10 years ago was last admitted on 02/05 with chest pain. Patient underwent cardiac cath during that admission and was noted to have multivessel coronary artery disease. Cardiothoracic surgery was consulted who recommended CABG for the patient. Patient refused the procedure at that moment. He comes in with recurrent chest pain associated with elevated blood pressure. Patient woke up at 4 in the morning and noted to have a high blood p ressure 190/80 he took his blood pressure medication earlier. By the time patient came to the ER his blood pressure improved. In the ER patient was noted to have a temp of 98 pulse 86 respiratory rate 16 blood pressure 133/66. He did complain of some discomfort in the left side of his chest denies any radiation of pain. He denies any shortness of breath or excessive sweating. EKG was obtained that suggested a sinus rhythm with a rate of 66 QRS 74 normal axis septal Q waves no acute ST changes. Chest x-ray showed some chronic patchy infiltrate. Labs are evaluated patient had a sodium 131 potassium 4.8 chloride 101 BUN 41 creatinine 1.97 stable glucose of 254 hemoglobin 11.3 hematocrit 32.8 WBC 7.9 platelet 181. Cardiac and cardiothoracic surgery was consulted. 02/09: Patient is found sitting up in a chair without any complaints. Patient has a rash to the right upper chest encompassing axilla and back. The rash is a vesicular and nonpainful. Due to the findings of shingles the surgery will be held for at least 2 weeks. Patient will be started on antiviral medication along with something for pain. Patient is agreeable with the plan of care. Discussed at length with the patient the importance of taking it easy when he has home until surgery is performed. No exertion. Patient verbalized understanding. More than likely patient will be sent home tomorrow on antiviral medications. 02/10: Patient found sitting up in chair without any complaints or concerns. Continues to have a vesicular rash to the upper chest including axilla and extending to back. continues to have some discomfort to the site. continue with valtrex for the next 6 days and continue with pain management. follow up with PCP. Discharge Diagnosis: 1. acute chest pain likely cardiac. Rule out ACS. 2. hypertensive urgency 3. history of coronary artery disease with prior myocardial infarction 4. Active shingles 5. Hyperlipidemia 6. diabetes uncontrolled 7. BPH 8. Insomnia 9. peripheral artery disease Discharge Disposition: home Impression and plan of care have been directed as dictated by the signing physician. Caitlyn Maldonado nurse practitioner acting as scribe for signing physician. Plan - Discharge Summary Discharge Rx Participant: No New Discharge Prescriptions: New valACYclovir HCL [Valtrex] 1,000 mg PO TID #18 tablet Acetaminophen Tab [Tylenol] 325 mg PO Q6HR PRN tab PRN Reason: Fever And/ Or Pain Continue Albuterol Inhaler [Ventolin Hfa Inhaler] 2 puff INHALATION RT-QID PRN PRN Reason: Shortness Of Breath Atorvastatin [Lipitor] 40 mg PO HS Doxazosin [Cardura] 4 mg PO BID Finasteride [Proscar] 5 mg PO DAILY Isosorbide Mononitrate ER [Imdur] 30 mg PO DAILY Levothyroxine Sodium [Synthroid] 224 mcg PO DAILY Losartan Potassium 100 mg PO HS Metoprolol Tartrate [Lopressor] 50 mg PO BID Pentoxifylline 400 mg PO BID Econazole 1% Cream [Spectazole] 1 applic TOPICAL DAILY PRN PRN Reason: Skin Irritation Ammonium Lactate Lotion [Lac-Hydrin 12% Lotion] 1 applic TOPICAL DAILY PRN PRN Reason: Dry Skin Aspirin EC [Ecotrin] 325 mg PO DAILY Cetirizine HCl [Zyrtec] 10 mg PO DAILY PRN PRN Reason: Allergy Symptoms INSULIN LISPRO (For Pump) [humaLOG (For Pump)] 0.01 units SQ-PUMP CONTINUOUS Verapamil HCl [Verapamil ER] 120 mg PO HS Verapamil HCl [Verapamil ER] 240 mg PO DAILY Zolpidem [Ambien] 5 mg PO HS PRN PRN Reason: Insomnia Discharge Medication List Albuterol Inhaler [Ventolin Hfa Inhaler] 2 puff INHALATION RT-QID PRN 02/04/21 [History] Ammonium Lactate Lotion [Lac-Hydrin 12% Lotion] 1 applic TOPICAL DAILY PRN 02/04/21 [History] Aspirin EC [Ecotrin] 325 mg PO DAILY 02/04/21 [History] Atorvastatin [Lipitor] 40 mg PO HS 02/04/21 [History] Cetirizine HCl [Zyrtec] 10 mg PO DAILY PRN 02/04/21 [History] Doxazosin [Cardura] 4 mg PO BID 02/04/21 [History] Econazole 1% Cream [Spectazole] 1 applic TOPICAL DAILY PRN 02/04/21 [History] Finasteride [Proscar] 5 mg PO DAILY 02/04/21 [History] INSULIN LISPRO (For Pump) [humaLOG (For Pump)] 0.01 units SQ-PUMP CONTINUOUS 02/04/21 [History] Isosorbide Mononitrate ER [Imdur] 30 mg PO DAILY 02/04/21 [History] Levothyroxine Sodium [Synthroid] 224 mcg PO DAILY 02/04/21 [History] Losartan Potassium 100 mg PO HS 02/04/21 [History] Metoprolol Tartrate [Lopressor] 50 mg PO BID 02/04/21 [History] Pentoxifylline 400 mg PO BID 02/04/21 [History] Verapamil HCl [Verapamil ER] 120 mg PO HS 02/04/21 [History] Verapamil HCl [Verapamil ER] 240 mg PO DAILY 02/04/21 [History] Zolpidem [Ambien] 5 mg PO HS PRN 02/04/21 [History] Acetaminophen Tab [Tylenol] 325 mg PO Q6HR PRN tab 02/10/21 [Rx] valACYclovir HCL [Valtrex] 1,000 mg PO TID #18 tablet 02/10/21 [Rx] Follow up Appointment(s)/Referral(s): Thu Dhaliwal DO [Primary Care Provider] - 1-2 days (OFFICES ARE CLOSED AT THIS TIME. PLEASE CALL THURSDAY FOR FOLLOW UP APPOINTMENT DATE AT TIME.) Tai Rosario MD [STAFF PHYSICIAN] - 2 Weeks (OFFICES ARE CLOSED AT THIS TIME. PLEASE CALL THURSDAY FOR FOLLOW UP APPOINTMENT DATE AT TIME.) Patient Instructions/Handouts: Shingles ([place]), Acute Coronary Syndrome ([place])
[2021-02-10 11:53] LABS: Glucose,Whole Blood 189 mg/dL (75-99)
--- NOTE | 2021-02-10 14:23 | P.PN ---
Subjective Progress Note Date: 02/10/21 HISTORY OF PRESENT ILLNESS: This is a 76-year-old male with a past medical history significant for hypertension, hyperlipidemia, diabetes mellitus, coronary artery disease, former tobacco use. Patient states he had a heart attack about 10 years ago. He reports having a cardiac cath at that time and did not require stenting. Patient follows in the office with Dr. Bryan. We have been asked to see the patient in consultation for chest pain. Patient states he woke up at night feeling anxious and that his blood pressure was high. He took his blood pressure and it was 190s /80s. He also has been having intermittent chest pain. Patient recent admitted 02/04/21 with chest pain. Patient underwent Le scan stress test revealed stress induced ischemic changes along the inferior wall. Mild dyskinesia distal inferior wall. EF 51%. Cardiac catheterization was recommended at that time. Echocardiogram revealed left ventricular systolic function is normal with EF of 55-60%, LA is mildly dilated, mild to moderate aortic valve sclerosis, trace mitral regurgitation, trace tricuspid regurgitation. Patient underwent cardiac catheter patient Dr. Bryan which revealed heavily calcified coronary system including left main. LV calcified vessel with a long 50-60% lesion in volving the proximal LAD. Appears to be eccentric 80-90% stenosis at the origin of the first diagonal. Also 70% lesion in the distal LAD. 60-70% lesion in the left circumflex. 60-70% in the distal RCA. 95% stenosis involving the origin of the PLV branch. At that time coronary artery bypass graft was recommended. At the time patient refused to undergo CABG. DIAGNOSTICS: EKG reveals sinus rhythm with premature atrial complexes, heart rate 66, nonspecific STT wave abnormalities. Laboratory data reviewed WBC 7.9, hemoglobin 11.3, platelets 181, sodium 131, potassium 4.8, BUN 41, serum creatinine 1.9, troponin negative 2, magnesium 1.7, COVID-19 negative Chest x-ray reveals mild patchy opacities in mid and lower lungs. 02/09/2021 Patient examined this morning the bedside. Patient was scheduled to undergo CABG on Thursday. However patient was found to have shingles of his right chest today. The surgery has been postponed for 2-3 weeks. He denies chest pain or pressure. He denies shortness of breath. 02/10/2021 Patient examined this morning at the bedside. He denies chest pain or pressure. He denies sure as of breath. Vital signs are stable. He is hoping to be discharged home today. PHYSICAL EXAM: VITAL SIGNS: Reviewed. GENERAL: Well-developed in no acute distress. HEENT: Head is normocephalic. Pupils are equal, round. Sclerae anicteric. Mucous membranes of the mouth are moist. Neck supple. No JVD or thyromegaly LUNGS: Respirations even and unlabored. Lungs essentially clear to auscultation bilaterally. HEART: Regular rate and rhythm. S1 and S2 heard. No murmur ABDOMEN: Soft. Nondistended. Nontender. EXTREMITIES: Normal range of motion. No clubbing or cyanosis. Peripheral pulses intact. No lower extremity edema NEUROLOGIC: Awake and alert. Oriented x 3. ASSESSMENT: Coronary artery disease with prior myocardial infarction treated medically Chest pain Hypertension Hyperlipidemia Type 2 Diabetes History of NSTEMI, 2009, not requiring PCI Obesity, BMI 31.0 Shingles PLAN: Continue current cardiac medications Patient may be discharged home today from a cardiac standpoint Nurse practitioner note has been reviewed by physician. Signing provider agrees with the documented findings, assessment, and plan of care. Objective - Vital Signs Vital signs: Vital Signs Temp 96.8 F L 02/10/21 08:46 Pulse 86 02/10/21 08:46 Resp 18 02/10/21 08:46 BP 136/62 02/10/21 08:46 Pulse Ox 97 02/10/21 08:46 Intake & Output 02/09/21 02/10/21 02/10/21 18:59 06:59 18:59 Intake Total 720 240 Output Total 100 2700 Balance 620 -2700 240 Weight 103.1 kg Intake: Oral 720 240 Output: Urine 100 2700 Other: Voiding Method Urinal # Voids 2 - Labs CBC & Chem 7: 02/08/21 08:15 02/08/21 08:15 Labs: Abnormal Lab Results - Last 24 Hours (Table) 02/09/21 02/09/21 02/09/21 Range/Units 08:42 16:52 21:02 POC Glucose (mg/dL) 191 H 159 H (75-99) mg/dL HDL Cholesterol 27.0 L (40.0-60.0) mg/dL 02/10/21 Range/Units 06:09 POC Glucose (mg/dL) 189 H (75-99) mg/dL HDL Cholesterol (40.0-60.0) mg/dL
[2021-02-11] MEDS ORDERED: NOREPINEPHRINE 4 MG in SODIUM CHLORIDE 0.9% 250 ML IV SCH (05:00)
[2021-02-11] MEDS ORDERED: ALBUMIN HUMAN 5% 500 ML in EMPTY BAG 1 BAG IVPB ONE ×6 (05:00)
[2021-02-11] MEDS ORDERED: PHENYLEPHRINE 40 MG in SODIUM CHLORIDE 0.9% 250 ML IV ONE (05:00)
[2021-02-11] MEDS ORDERED: CLEVIDIPINE BUTYRATE 25 MG in EMPTY BAG 1 BAG IV SCH (05:00)
[2021-02-11] MEDS ORDERED: ASPIRIN 325 MG TAB PO ONE (05:00)
[2021-02-11] MEDS ORDERED: ATORVASTATIN 10 MG TAB PO ONE (05:00)
[2021-02-11] MEDS ORDERED: HEPARIN SODIUM 1,000 UN/ML (10ML VL) IV ONE (05:00)
[2021-02-11] MEDS ORDERED: INSULIN REGULAR 100 UNIT in SODIUM CHLORIDE 0.9% 100 ML IV SCH (05:00)
[2021-02-11] MEDS ORDERED: MANNITOL 25% 12.5 GM/50 ML VIAL IV ONE ×2 (05:00)
[2021-02-11] MEDS ORDERED: ceFAZolin 1,000 MG in SODIUM CHLORIDE 0.9% IRRIGATIO 1,000 ML IRRIGATION ONE (05:00)
[2021-02-11] MEDS ORDERED: TRANEXAMIC ACID 2,000 MG in SODIUM CHLORIDE 0.9% 80 ML IV ONE (05:00)
[2021-02-11] MEDS ORDERED: PROTAMINE SULFATE 10 MG/ML 25 ML VIAL IV ONE (05:00)
[2021-02-11] MEDS ORDERED: PROTAMINE SULFATE 250 MG in EMPTY BAG 1 BAG IV ONE (05:00)
[2021-02-11] MEDS ORDERED: ELECTROLYTE-A SOLUTION 1,000 ML with POTASSIUM CHLORIDE 40 MEQ, MAGNESIUM SULFATE 16 ME... IV SCH ×5 (05:00)
[2021-02-11] MEDS ORDERED: NITROGLYCERIN-D5W PMX 50 MG in DEXTROSE/WATER 1 250ML.BAG IV SCH (05:00)
[2021-02-11] MEDS ORDERED: ALBUMIN HUMAN 25% 50 ML in EMPTY BAG 1 BAG IVPB ONE (05:00)
[2021-02-11] MEDS ORDERED: METOPROLOL TARTRATE 12.5 MG TAB PO ONE (05:00)
[2021-02-11] MEDS ORDERED: HEPARIN SODIUM,PORCINE 5,000 UNIT in SODIUM CHLORIDE 0.9% 500 ML 500 ML IV ONE (05:00)
[2021-02-11] MEDS ORDERED: NITROGLYCERIN-D5W PMX 25 MG/250 ML BTL IV ONE (05:00)
[2021-02-11] MEDS ORDERED: CALCIUM CHLORIDE 100 MG/ML 10 ML SYRINGE IVP ONE (05:00)
[2021-02-11] MEDS ORDERED: MAGNESIUM SULFATE SYG 4.06 MEQ/ML SYRINGE IV ONE (05:00)
[2021-02-11] MEDS ORDERED: SODIUM BICARB 8.4% 50 ML SYR (1 MEQ/ML) IV ONE (05:00)
[2021-02-11] MEDS ORDERED: PAPAVERINE 360 MG in SODIUM CHLORIDE 0.9% 90 ML IV ONE (05:00)
[2021-02-11] MEDS ORDERED: CHLORHEXIDINE GLUCONATE 15 ML CUP MUCOUS MEM ONE (05:00)
[2021-02-11] MEDS ORDERED: ELECTROLYTE-A SOLUTION 1,000 ML with POTASSIUM CHLORIDE 100 MEQ, MAGNESIUM SULFATE 16 M... IV SCH ×5 (05:00)
[2021-02-11] MEDS ORDERED: PHENYLEPHRINE 10 MG/ML VIAL IV ONE (16:16)
--- NOTE | 2021-02-13 14:11 | CDI ---
Documentation Clarification Form Date: 02/13/2021 02:09 PM From: Maranda Lira RN CCDS Admit Date: 02/08/2021 10:19:00 AM Patient Name: Artemio Ford Visit Number: [id number] Discharge Date: 02/10/2021 11:41:00 AM ATTENTION: The Clinical Documentation Specialists (CDI) and [facility] Coding Staff appreciate your assistance in clarifying documentation. Please respond to the clarification below the line at the bottom and electronically sign. The CDI & [facility] Coding staff will review the response and follow-up if needed. Please note: Queries are made part of the Legal Health Record. If you have any questions, please contact the author of this message via ITS. Dr. Sulaiman Montalvo, Conflicting documentation has been found in the medical record. As attending physician, please provide clarification. Acute chest pain likely cardiac, DCS, 02/10 Rule out ACS, DCS, 02/10 Cardiology Consult 02/08: Coronary Artery Disease with prior myocardial infarction treated medically. Chest pain History/Risk Factors: 76-year-old presents to the ED with discomfort in the left side of his chest. The patient recently was admitted with chest pain had a Cardiac Cath. A CABG was recommended for multivessel coronary artery disease. Medical history: CAD, Angina, DM and AR 2009, not requiring PCI. Clinical Indicators: CXR 02/08: Mild patchy opacites mid and lower lungs. EKG 02/08: Sinus rhythm ith premature atrial complexes, heart rate 66, nonspecific ST-T wave abnormalities. Lab: 02/08 BNP 254; Troponin <0.012; <0.12; Total protein 5.8; Albumin 3.4 Treatment: 02/08 Nitro Bid Oint 0.5 Inch Topical x 1 STA; 02/08 Aspirin 324mg PO x 1 STA; 02/08 Cozaar 100mg PO HS NEIL d/c 02/10; 02/08 Verapamil HCL 120mg PO HS NEIL d/c 02/09; 02/09 Aspirin 325mg PO Daily NEIL d/c 02/10; 02/09 Imdur 30mg PO Daily NEIL d/c 02/10; Please clarify which diagnosis is most appropriate: [xx ] ACS Ruled Out [ ] ACS Ruled IN [ ] Other (please specify) [ ] Unable to determine (Template Last Revised: September 2020) MTDD
== END 2021-02-10 11:41 | disposition home or self-care (01) | DRG 313 ==
LOC: EC 08:04 → 3SCARD 10:19
PROVIDERS: ADMIT Internal Medicine; ATTEND Internal Medicine
DX: R07.89 Other chest pain (principal); I16.0 Hypertensive urgency; I25.10 Atherosclerotic heart disease of native coronary artery without angina pectoris; B02.8 Zoster with other complications; E03.9 Hypothyroidism, unspecified; E10.22 Type 1 diabetes mellitus with diabetic chronic kidney disease; E10.51 Type 1 diabetes mellitus with diabetic peripheral angiopathy without gangrene; E10.42 Type 1 diabetes mellitus with diabetic polyneuropathy; E10.65 Type 1 diabetes mellitus with hyperglycemia; E66.9 Obesity, unspecified; E78.5 Hyperlipidemia, unspecified; I25.2 Old myocardial infarction; Z96.41 Presence of insulin pump (external) (internal); Z79.4 Long term (current) use of insulin; G47.00 Insomnia, unspecified; H40.20X0 Unspecified primary angle-closure glaucoma, stage unspecified; H91.90 Unspecified hearing loss, unspecified ear; I12.9 Hypertensive chronic kidney disease with stage 1 through stage 4 chronic kidney disease, or unspecified chronic kidney disease; I49.1 Atrial premature depolarization; N18.30 Chronic kidney disease, stage 3 unspecified; N40.0 Benign prostatic hyperplasia without lower urinary tract symptoms; Z20.822 Contact with and (suspected) exposure to COVID-19; Z68.31 Body mass index [BMI] 31.0-31.9, adult; Z79.82 Long term (current) use of aspirin; Z79.890 Hormone replacement therapy; Z79.899 Other long term (current) drug therapy; Z80.6 Family history of leukemia; Z82.49 Family history of ischemic heart disease and other diseases of the circulatory system; Z83.3 Family history of diabetes mellitus; Z87.01 Personal history of pneumonia (recurrent); Z87.891 Personal history of nicotine dependence
CPT/HCPCS: 36415; 71046; 80053; 80061; 81003; 83735; 83880; 84484; 85025; 85610; 85730; 87635; 93005; 99285